=== PATIENT | female | born 1935 | race Caucasian/White ===

== ENCOUNTER → 2016-12-06 | Outpatient (CLI) | payer MEDICARE ==
[2016-12-06 08:56] LABS: Blood Urea Nitrogen 21 mg/dL (7-17); Non-African American GFR(MDRD) >60 (>60 ml/min/1.73 sqM)
--- NOTE | 2016-12-06 09:09 | US ---
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 TIA EXAM MEASUREMENTS: RIGHT: Peak Systolic Velocity (PSV) cm/sec ----- Right CCA: 77.6 ----- Right ICA: 97.7 ----- Right ECA: 66.9 ICA/CCA ratio: 1.3 RIGHT: End Diastole cm/sec ----- Right CCA: 23.5 ----- Right ICA: 29.6 ----- Right ECA: 14.2 LEFT: Peak Systolic Velocity (PSV) cm/sec ----- Left CCA: 54.0 ----- Left ICA: 100.8 ----- Left ECA: 63.6 ICA/CCA ratio: 1.9 LEFT: End Diastole cm/sec ----- Left CCA: 19.1 ----- Left ICA: 37.4 ----- Left ECA: 16.5 VERTEBRALS (direction of flow): Right Vertebral: Antegrade Left Vertebral: Antegrade TECHNOLOGIST IMPRESSION: Bilateral wall thickening. No significant stenosis or elevated velocities. Plaque seen in bilateral bulbs extending into the proximal ICA. Grayscale images show mild eccentric hyperechoic plaque centered near right carotid bulb. There is si milar slightly more prominent mild to moderate eccentric focal hyperechoic plaque at left carotid bul b. Velocity measurements and ratios remain within normal limits in the bilateral internal carotid art eries. IMPRESSION: No hemodynamically significant stenosis is seen in either internal carotid artery. Criteria for Assigning % of Stenosis / Diameter reduction (Estimation based on the indirect measurements of the internal carotid artery velocities (ICA PSV). 2. Less than 50% stenosis=ICA PSV < 125 cm/s: ratio < 2.0: ICA EDV<40 cm/s.
--- NOTE | 2016-12-06 10:43 | CT ---
EXAMINATION TYPE: CT brain w con DATE OF EXAM: 12/06/2016 9:19 AM COMPARISON: NONE HISTORY: 81-year-old female poor historian. Patient shows signs of confusion. CT DLP: 1118 mGycm Automated exposure control for dose reduction was used. CONTRAST: CT scan of the head is performed with IV Contrast, patient injected with 100 mL of Omnipaque 300. Cor onal/sagittal reconstructions performed. FINDINGS: The presence of intracranial contrast limits assessment for subtle acute intracranial hemorrhage. The re is no abnormal enhancing mass or midline shift identified. There is mild generalized supratentoria l volume loss. No hydrocephalus. The globes are intact and the visualized sinuses are clear. IMPRESSION: Mild cerebral atrophy. Otherwise, negative contrast enhanced head CT exam.
== END | disposition home or self-care (01) ==
LOC: RADUSMAIN 07:56
PROVIDERS: ATTEND Family Medicine
DX: I63.9 Cerebral infarction, unspecified (principal); R41.0 Disorientation, unspecified; R26.81 Unsteadiness on feet
CPT/HCPCS: 82565; 84520; 93880; 70460; 36415; Q9967

== ENCOUNTER 2021-05-27 11:37 | Inpatient (IN) | payer MEDICARE ==
[2021-05-27] MEDS ORDERED: SODIUM CHLORIDE 0.9% 1,000 ML IV STA (12:20)
--- NOTE | 2021-05-27 12:24 | ED ---
General Adult HPI - General Chief complaint: Recheck/Abnormal Lab/Rx Stated complaint: Fall last night, possible bladder infection Time Seen by Provider: 05/27/21 12:14 Source: patient, RN notes reviewed, old records reviewed Mode of arrival: wheelchair Limitations: no limitations - History of Present Illness Initial comments: 86-year-old female presents with family with confusion, poor appetite, and fall. Patient had fallen last night around 11 PM. She was taken to an outside hospital and there was x-rays performed which did indicate that the patient had a humerus fracture as well as possibly a pelvic fracture. She was discharged home with family. She had a recent UTI but is not currently on antibiotics. She has not been eating or drinking well. Family uncertain if there was a significant head injury. Patient is confused and unable to give detailed history. There are presenting at approximately noon the following day. - Related Data Home Medications Medication Instructions Recorded Confirmed ALPRAZolam [Xanax] 0.5 mg PO TID PRN 05/04/15 09/14/15 Aspirin 81 mg PO HS 05/04/15 09/14/15 Budesonide-Formot 160-4.5 Mcg 2 puff INHALATION BID 05/04/15 09/14/15 [Symbicort 160-4.5 Mcg Inhaler] Indomethacin [Indocin] 50 mg PO DAILY 05/04/15 09/14/15 Meclizine [Antivert] 25 mg PO DAILY PRN 05/04/15 09/14/15 Nitroglycerin Sl Tabs [Nitrostat] 0.4 mg SL DIRECTED PRN 05/04/15 09/14/15 Omeprazole [PriLOSEC] 20 mg PO BID PRN 05/04/15 09/14/15 PARoxetine [Paxil] 10 mg PO QAM 05/04/15 09/14/15 atenoloL [Tenormin] 12.5 mg PO QAM 05/04/15 09/14/15 rOPINIRole HCL [Requip] 1 mg PO HS 05/04/15 09/13/15 Cranberry Conc/C/Bacill Coag 1 each PO DAILY 08/01/15 09/14/15 [Cranberry Tablet] [place]-3 Fatty Acids/Fish Oil [Fish 1 each PO DAILY 08/01/15 09/14/15 Oil 1,000 mg Softgel] Previous Rx's Medication Instructions Recorded HYDROcodone/APAP 5-325MG [[place] 5] 1 each PO Q6HR PRN #30 tab 05/04/15 Allergies Allergy/AdvReac Type Severity Reaction Status Date / Time Sulfa (Sulfonamide AdvReac Rash/Hives Verified 05/27/21 11:56 Antibiotics) Review of Systems ROS Statement: Those systems with pertinent positive or pertinent negative responses have been documented in the HPI. ROS Other: All systems not noted in ROS Statement are negative. Past Medical History Past Medical History: Asthma, Chest Pain / Angina, COPD, Eye Disorder, GERD/Reflux, Hypertension, Pneumonia, Skin Disorder Additional Past Medical History / Comment(s): USHER SYNDROME TYPE 2-LEGALLY BLI ND-TEDDY NIZM-STW-EVOB HEARING AIDES,CONSTIPATION,UTI'S,varicose veins, psoriasis, hx kidney stones History of Any Multi-Drug Resistant Organisms: MRSA Date of last positivie culture/infection: 10/24/17 MDRO Source:: MRSA URINE Past Surgical History: Cholecystectomy Additional Past Surgical History / Comment(s): cataract teddy eyes, thyroidectomy Past Anesthesia/Blood Transfusion Reactions: Motion Sickness Additional Past Anesthesia/Blood Transfusion Reaction / Comment(s): VERTIGO Past Psychological History: Depression Smoking Status: Never smoker Past Alcohol Use History: None Reported Past Drug Use History: None Reported - Past Family History Mother Family Medical History: CVA/TIA Father Additional Family Medical History / Comment(s): BLOOD CLOT TO BRAIN- AT AGE 55 General Exam Limitations: no limitations General appearance: in no apparent distress, lethargic Head exam: Present: atraumatic, normocephalic Eye exam: Present: normal appearance, PERRL ENT exam: Present: mucous membranes dry Neck exam: Present: normal inspection. Absent: tenderness, meningismus Respiratory exam: Present: normal lung sounds bilaterally. Absent: respiratory distress, wheezes Cardiovascular Exam: Present: regular rate, normal rhythm GI/Abdominal exam: Present: soft. Absent: distended, tenderness, guarding Extremities exam: Present: other (Right upper extremity, sling applied, ecchymosis to the humerus.) Neurological exam: Present: alert, motor sensory deficit (Patient is confused, she does have diminished strength throughout but this is equal.). Absent: oriented X3 Psychiatric exam: Present: normal affect, normal mood Skin exam: Present: warm, dry, intact Course Vital Signs 05/27/21 11:56 Temperature 98 F Pulse Rate 97 Respiratory 18 Rate Blood Pressure 71/52 O2 Sat by Pulse 93 L Oximetry EKG Findings - EKG Comments: EKG Findings:: EKG: Normal sinus rhythm with baseline artifact, no ST segment elevation, rate of 95, RI interval 144, QRS duration 70, QTC 409 Medical Decision Making - Medical Decision Making 86-year-old female with confusion, poor appetite, fall which occurred yesterday. I did repeat imaging both of the chest, pelvis, and obtained a brain CT. Brain CT negative for scleral hemorrhage or mass effect. Chest x-ray shows a displaced proximal humerus fracture with no other acute findings no focal airspace disease. Pelvis x-ray is negative for displaced fracture within the pelvis or bilateral hips. Urinalysis is pending. She has a mild leukocytosis. She is significantly dehydrated and started on IV fluids. Urinalysis is pending. Troponin is elevated 0.15 she is in sinus rhythm without ST segment elevation. There's been no complaint of chest pain. She's given aspirin and this level will be trended. Case discussed with Dr. Carl who will admit. Both orthopedics and cardiology are placed on consult. - Lab Data Result diagrams: 05/27/21 13:03 05/27/21 13:03 Lab Results 05/27/21 05/27/21 05/27/21 Range/Units 13:03 13:03 13:03 WBC 13.5 H (3.8-10.6) k/uL RBC 3.55 L (3.80-5.40) m/uL Hgb 12.0 (11.4-16.0) gm/dL Hct 35.2 (34.0-46.0) % MCV 99.0 (80.0-100.0) fL MCH 33.9 (25.0-35.0) pg MCHC 34.3 (31.0-37.0) g/dL RDW 13.0 (11.5-15.5) % Plt Count 299 (150-450) k/uL MPV 8.9 Neutrophils % 89 % Lymphocytes % 6 % Monocytes % 4 % Eosinophils % 0 % Basophils % 0 % Neutrophils # 12.0 H (1.3-7.7) k/uL Lymphocytes # 0.9 L (1.0-4.8) k/uL Monocytes # 0.5 (0-1.0) k/uL Eosinophils # 0.0 (0-0.7) k/uL Basophils # 0.0 (0-0.2) k/uL PT 10.3 (9.0-12.0) sec INR 1.0 (<1.2) APTT 22.8 (22.0-30.0) sec Sodium 133 L (137-145) mmol/L Potassium 4.6 (3.5-5.1) mmol/L Chloride 104 (98-107) mmol/L Carbon Dioxide 21 L (22-30) mmol/L Anion Gap 8 mmol/L BUN 27 H (7-17) mg/dL Creatinine 0.60 (0.52-1.04) mg/dL Est GFR (CKD-EPI)AfAm >90 (>60 ml/min/1.73 sqM) Est GFR (CKD-EPI)NonAf 84 (>60 ml/min/1.73 sqM) Glucose 166 H (74-99) mg/dL Plasma Lactic Acid Joaquin (0.7-2.0) mmol/L Calcium 9.6 (8.4-10.2) mg/dL Magnesium 1.7 (1.6-2.3) mg/dL Total Bilirubin 1.0 (0.2-1.3) mg/dL AST 43 H (14-36) U/L ALT 47 H (4-34) U/L Alkaline Phosphatase 106 (38-126) U/L Creatine Kinase 120 (30-135) U/L Troponin I (0.000-0.034) ng/mL Total Protein 6.1 L (6.3-8.2) g/dL Albumin 3.5 (3.5-5.0) g/dL 05/27/21 05/27/21 Range/Units 13:03 13:03 WBC (3.8-10.6) k/uL RBC (3.80-5.40) m/uL Hgb (11.4-16.0) gm/dL Hct (34.0-46.0) % MCV (80.0-100.0) fL MCH (25.0-35.0) pg MCHC (31.0-37.0) g/dL RDW (11.5-15.5) % Plt Count (150-450) k/uL MPV Neutrophils % % Lymphocytes % % Monocytes % % Eosinophils % % Basophils % % Neutrophils # (1.3-7.7) k/uL Lymphocytes # (1.0-4.8) k/uL Monocytes # (0-1.0) k/uL Eosinophils # (0-0.7) k/uL Basophils # (0-0.2) k/uL PT (9.0-12.0) sec INR (<1.2) APTT (22.0-30.0) sec Sodium (137-145) mmol/L Potassium (3.5-5.1) mmol/L Chloride (98-107) mmol/L Carbon Dioxide (22-30) mmol/L Anion Gap mmol/L BUN (7-17) mg/dL Creatinine (0.52-1.04) mg/dL Est GFR (CKD-EPI)AfAm (>60 ml/min/1.73 sqM) Est GFR (CKD-EPI)NonAf (>60 ml/min/1.73 sqM) Glucose (74-99) mg/dL Plasma Lactic Acid Joaquin 1.8 (0.7-2.0) mmol/L Calcium (8.4-10.2) mg/dL Magnesium (1.6-2.3) mg/dL Total Bilirubin (0.2-1.3) mg/dL AST (14-36) U/L ALT (4-34) U/L Alkaline Phosphatase (38-126) U/L Creatine Kinase (30-135) U/L Troponin I 0.150 H* (0.000-0.034) ng/mL Total Protein (6.3-8.2) g/dL Albumin (3.5-5.0) g/dL Disposition Clinical Impression: Dehydration, AMS (altered mental status), Troponin level elevated, Proximal humerus fracture Disposition: ADMITTED IP TO THIS [facility] Condition: Stable Is patient prescribed a controlled substance at d/c from ED?: No Referrals: Nat Patino DO [Primary Care Provider] - 1-2 days Decision to Admit Reason: Admit from EC Decision Date: 05/27/21 Decision Time: 14:39
[2021-05-27 13:19] LABS: Basophils % (A) 0 %; Eosinophils % (A) 0 %; HCT 35.2 % (34.0-46.0); Lymphocytes # (A) 0.9 k/uL (1.0-4.8); Lymphocytes % (A) 6 %; MCH 33.9 pg (25.0-35.0); MCHC 34.3 g/dL (31.0-37.0); Mean Platelet Volume 8.9; Monocytes # (A) 0.5 k/uL (0-1.0); Monocytes % (A) 4 %; Neutrophils % (A) 89 %; Platelet Count 299 k/uL (150-450); RBC 3.55 m/uL (3.80-5.40); WBC 13.5 k/uL (3.8-10.6)
[2021-05-27 13:24] LABS: Partial Thromboplastin Time 22.8 sec (22.0-30.0); Prothrombin Time 10.3 sec (9.0-12.0)
[2021-05-27 13:30] LABS: ALT 47 U/L (4-34); AST 43 U/L (14-36); African American GFR (CKD) >90 (>60 ml/min/1.73 sqM); Albumin 3.5 g/dL (3.5-5.0); Alkaline Phosphatase 106 U/L (38-126); Anion Gap 8 mmol/L; Blood Urea Nitrogen 27 mg/dL (7-17); Calcium 9.6 mg/dL (8.4-10.2); Carbon Dioxide 21 mmol/L (22-30); Chloride 104 mmol/L (98-107); Creatine Kinase 120 U/L (30-135); Glucose 166 mg/dL (74-99); Magnesium 1.7 mg/dL (1.6-2.3); Non-African American GFR(CKD) 84 (>60 ml/min/1.73 sqM); Potassium 4.6 mmol/L (3.5-5.1); Sodium 133 mmol/L (137-145); Total Protein 6.1 g/dL (6.3-8.2)
[2021-05-27] MEDS ORDERED: cefTRIAXone IN SWFI 1,000 MG/10 ML SYRINGE IVP STA (13:45)
[2021-05-27] MEDS: SODIUM CHLORIDE 0.9% 1,000 ML IV SCH (14:10)
--- NOTE | 2021-05-27 14:18 | XR ---
EXAMINATION TYPE: XR pelvis AP view DATE OF EXAM: 05/27/2021 COMPARISON: NONE HISTORY: 86 years Female. STUDY INDICATION GIVEN: fall . TECHNIQUE: Single pelvic radiograph IMPRESSION: Generalized osteopenia limits evaluation for nondisplaced fractures. No grossly displaced fracture. The need for CT of the pelvis should be determined on clinical basis. Degenerative changes are seen in the lower lumbar spine and both sacroiliac joints. Moderate amount of stool seen in the colon.
--- NOTE | 2021-05-27 14:20 | XR ---
EXAMINATION TYPE: XR chest 1V portable DATE OF EXAM: 05/27/2021 COMPARISON: NONE HISTORY: 86 years Female. STUDY INDICATION GIVEN: weakness . TECHNIQUE: AP chest radiograph IMPRESSION: No focal airspace disease, pneumothorax or pleural effusion. Minimal bibasilar subsegmental atelectatic opacities. Normal cardiomediastinal silhouette. Displaced right proximal humerus neck fracture, unknown chronicity.
--- NOTE | 2021-05-27 14:32 | CT ---
EXAMINATION TYPE: CT brain wo con DATE OF EXAM: 05/27/2021 COMPARISON: 05/30/2018 HISTORY: Weakness, agitation CT DLP: 1111.4 mGycm Automated exposure control for dose reduction was used. There is diffuse cerebral atrophy. There is no mass effect nor midline shift. There is no sign of int racranial hemorrhage. Calvarium is intact. Skull base is intact. There is incomplete pneumatization l eft mastoid sinuses. IMPRESSION: Cerebral atrophy. No acute intracranial abnormality. There is left side mastoiditis which is new comp ared to old exam.
[2021-05-27] MEDS ORDERED: ACETAMINOPHEN TAB 325 MG TAB PO PRN (14:35)
[2021-05-27] MEDS ORDERED: NALOXONE 0.4 MG/ML 1 ML VIAL IV PRN (14:35)
[2021-05-27] MEDS: ASPIRIN 325 MG TAB PO STA ×2 (15:28→15:31)
[2021-05-27] MEDS: MORPHINE SULFATE 2 MG/ML SYRINGE IV PRN ×2 (15:36→21:18)
[2021-05-27 15:40] LABS: Appearance,Urine Clear (Clear); Bacteria,Urine Rare /hpf; Bilirubin,Urine Negative (Negative); Blood,Urine Trace (Negative); Color,Urine Yellow; Glucose,Urine (UA) Trace (Negative); Ketones,Urine Negative (Negative); Leukocyte Esterase,Urine Negative (Negative); Mucus,Urine Rare /hpf; Nitrite,Urine Negative (Negative); Protein,Urine Trace (Negative); RBC,Urine 1 /hpf (0-5); Specific Gravity,Urine 1.017 (1.001-1.035); Squamous Epithelial Cell,Urine <1 /hpf (0-4); Urobilinogen,Urine <2.0 mg/dL (<2.0); WBC,Urine 3 /hpf (0-5)
--- NOTE | 2021-05-27 16:28 | P.CNOR ---
History of Present Illness - HPI Consult date: 05/27/21 History of present illness: This patient is an 86-year-old female that presented to [facility] emergency department on 05/27/21 with her family with complaints of confusion, loss of appetite. Patient is admitted under the care of internal medicine. Orthopedics is consulted for a right proximal humerus fracture. Patient is confused on exam. She is unable to explain details of her fall. She also states she is in a bad mood and does not want to talk further. Her right upper extremity is currently in a sling. She has additional complaints. Vital signs stable. Past Medical History Past Medical History: Asthma, Chest Pain / Angina, COPD, Eye Disorder, GERD/Reflux, Hypertension, Pneumonia, Skin Disorder Additional Past Medical History / Comment(s): USHER SYNDROME TYPE 2-LEGALLY BLIND-TEDDY RBHE-UXG-AEIV HEARING AIDES,CONSTIPATION,UTI'S,varicose veins, psoria sis, hx kidney stones History of Any Multi-Drug Resistant Organisms: MRSA Year Discovered:: 10/24/17 MDRO Source:: MRSA URINE Past Surgical History: Cholecystectomy Additional Past Surgical History / Comment(s): cataract teddy eyes, thyroidectomy Past Anesthesia/Blood Transfusion Reactions: Motion Sickness Additional Past Anesthesia/Blood Transfusion Reaction / Comm: VERTIGO Past Psychological History: Depression Smoking Status: Never smoker Past Alcohol Use History: None Reported Past Drug Use History: None Reported - Past Family History Mother Family Medical History: CVA/TIA Father Additional Family Medical History / Comment(s): BLOOD CLOT TO BRAIN- AT AGE 55 Medications and Allergies Home Medications Medication Instructions Recorded Confirmed Type Budesonide-Formot 160-4.5 Mcg 2 puff INHALATION RT-BID 05/04/15 05/27/21 History [Symbicort 160-4.5 Mcg Inhaler] Nitroglycerin Sl Tabs [Nitrostat] 0.4 mg SL DIRECTED PRN 05/04/15 05/27/21 History Omeprazole [PriLOSEC] 20 mg PO BID PRN 05/04/15 05/27/21 History PARoxetine [Paxil] 10 mg PO DAILY 05/04/15 05/27/21 History atenoloL [Tenormin] 12.5 mg PO DAILY 05/04/15 05/27/21 History Cranberry Conc/C/Bacill Coag 1 tab PO DAILY 08/01/15 05/27/21 History [Cranberry Tablet] ALPRAZolam [Xanax] 0.25 mg PO QID PRN 05/27/21 05/27/21 History Albuterol Nebulized [Ventolin 2.5 mg INHALATION RT-DAILY PRN 05/27/21 05/27/21 History Nebulized] Cholecalciferol [Vitamin D3 (25 25 mcg PO DAILY 05/27/21 05/27/21 History Mcg = 1000 Iu)] Fluticasone Nasal [place] [Flonase 1 spray EA NOSTRIL DAILY PRN 05/27/21 05/27/21 History Nasal [place]] HYDROcodone/APAP 10-325MG [[place] 1 tab PO BID PRN 05/27/21 05/27/21 History 10-325] Hydrocortisone Cream 1 applic TOPICAL BID PRN 05/27/21 05/27/21 History [Hydrocortisone 2.5% Cream] Isosorbide Mononitrate ER [Imdur] 15 mg PO DAILY 05/27/21 05/27/21 History Lactulose 10 gm PO DAILY PRN 05/27/21 05/27/21 History Meloxicam 15 mg PO DAILY 05/27/21 05/27/21 History Mometasone Furoate [[place] 1 applic TOPICAL BID PRN 05/27/21 05/27/21 History Ointment] Montelukast [Singulair] 10 mg PO DAILY 05/27/21 05/27/21 History Multivitamins, Thera [Multivitamin 1 tab PO DAILY 05/27/21 05/27/21 History (formulary)] Potassium Bicarbonate/Cit AC 10 meq PO DAILY 05/27/21 05/27/21 History [K-Lyte] Pramipexole [Mirapex] 1 mg PO HS 05/27/21 05/27/21 History Allergies Allergy/AdvReac Type Severity Reaction Status Date / Time Sulfa (Sulfonamide AdvReac Rash/Hives Verified 05/27/21 15:04 Antibiotics) Physical Examination On examination, the patient is in bed in no apparent distress. She is confused. Her head appears normocephalic and atraumatic. Her breathing is nonlabored. On inspection of the left upper extremity, there are no obvious deformities at the trauma. On inspection of her bilateral lower extremities. DEFORMITIES or signs of trauma. On inspection of her right shoulder, there is diffuse ecchymosis and swelling. No open wounds. Moderate pain with palpation of the right shoulder. Right upper extremity for well-perfused. Motor and sensory is intact. Right upper extremity currently in sling. Results Chest x-ray taken on 05/27/21: Displaced right proximal humerus fracture. Pelvis x-ray taken on 05/27/21: No obvious fractures. - Labs Labs: Abnormal Lab Results - Last 24 Hours (Table) 05/27/21 05/27/21 05/27/21 Range/Units 13:03 13:03 13:03 WBC 13.5 H (3.8-10.6) k/uL RBC 3.55 L (3.80-5.40) m/uL Neutrophils # 12.0 H (1.3-7.7) k/uL Lymphocytes # 0.9 L (1.0-4.8) k/uL Sodium 133 L (137-145) mmol/L Carbon Dioxide 21 L (22-30) mmol/L BUN 27 H (7-17) mg/dL Glucose 166 H (74-99) mg/dL AST 43 H (14-36) U/L ALT 47 H (4-34) U/L Troponin I (0.000-0.034) ng/mL Total Protein 6.1 L (6.3-8.2) g/dL Urine Protein Trace H (Negative) Urine Glucose (UA) Trace H (Negative) Urine Blood Trace H (Negative) Urine Bacteria Rare H (None) /hpf Urine Mucus Rare H (None) /hpf 05/27/21 Range/Units 13:03 WBC (3.8-10.6) k/uL RBC (3.80-5.40) m/uL Neutrophils # (1.3-7.7) k/uL Lymphocytes # (1.0-4.8) k/uL Sodium (137-145) mmol/L Carbon Dioxide (22-30) mmol/L BUN (7-17) mg/dL Glucose (74-99) mg/dL AST (14-36) U/L ALT (4-34) U/L Troponin I 0.150 H* (0.000-0.034) ng/mL Total Protein (6.3-8.2) g/dL Urine Protein (Negative) Urine Glucose (UA) (Negative) Urine Blood (Negative) Urine Bacteria (None) /hpf Urine Mucus (None) /hpf H & H 05/27/21 Range/Units 13:03 Hgb 12.0 (11.4-16.0) gm/dL Hct 35.2 (34.0-46.0) % Coagulation 05/27/21 Range/Units 13:03 INR 1.0 (<1.2) Result Diagrams: 05/27/21 13:03 05/27/21 13:03 Assessment and Plan Assessment: Displaced right proximal humerus fracture. Plan: - The patient was seen and examined with Dr. Jordan. Recommend non-operative treatment for her right proximal humerus fracture. Recommend immobilization of the right upper extremity in the current sling. - Recommended dedicated right shoulder xrays today, although based on patient's comfort at this time, we will defer until we see her in the office. - Ice, rest, elevation of the right shoulder. No lifting with the right upper extremity. - Pain management as needed. - She may follow-up in the office as an outpatient. Follow-up in the office in two weeks for repeat x-rays of the right shoulder.
[2021-05-27] MEDS ORDERED: ALBUTEROL NEBULIZED 2.5 MG/3 ML INHALATION PRN (22:27)
[2021-05-27] MEDS ORDERED: PANTOPRAZOLE 40 MG TABLET PO PRN (22:27)
[2021-05-27] MEDS ORDERED: LACTULOSE 20 GM/30 ML CUP PO PRN (22:27)
[2021-05-27] MEDS: HYDROcodone/APAP 10-325MG 1 EACH TAB PO PRN (23:02)
[2021-05-27] MEDS: ALPRAZolam 0.25 MG TAB PO PRN (23:02)
[2021-05-28] MEDS ORDERED: SENNOSIDES 8.6 MG TAB PO PRN (00:14)
--- NOTE | 2021-05-28 00:24 | P.HPIM ---
History of Present Illness H&P Date: 05/27/21 Chief Complaint: Altered mental status Patient is a 86-year-old female with a known history of COPD/asthma, GERD, hypertension, legally blind bilateral eyes, psoriasis and history of renal stones and depression was brought to the hospital by his family due to confusion, poor appetite and generalized weakness. Apparently patient fell around 11 PM last night. Patient was taken to outside hospital where she had x- rays performed which indicated that the patient had a humerus fracture as well as possibly pelvic fracture. Patient was discharged home with family. Patient was also has history of recent urinary tract infection. Patient is currently confused and talking to herself. Unable to provide any history. Patient has been afebrile. Blood pressure was 71/52 on admission. X-ray of the pelvis showed generalized osteopenia limits evaluation for nondisplaced fractures. No grossly displaced fracture. The need for CT of the pelvis should be determined on a clinical basis. Moderate amount of stool seen in the colon. Laboratory data showed WBC 13.5 hemoglobin 12.0 and platelets 299 Sodium 133 potassium 4.6 chloride 104 BUN 27 creatinine 0.6 AST 43 ALT 47 alk phos 106 Troponin 0 0.150 and 0.218 Urinalysis negative for infection. Review of Systems Complete review of systems could not be obtained from the patient. Past Medical History Past Medical History: Asthma, Chest Pain / Angina, COPD, Eye Disorder, GERD/Reflux, Hypertension, Pneumonia, Skin Disorder Additional Past Medical History / Comment(s): USHER SYNDROME TYPE 2-LEGALLY BLIND-TEDDY [id number] HEARING AIDES,CONSTIPATION,UTI'S,varicose veins, psoriasis, hx kidney stones History of Any Multi-Drug Resistant Organisms: MRSA Date of last positivie culture/infection: 10/24/17 MDRO Source:: MRSA URINE Past Surgical History: Cholecystectomy Additional Past Surgical History / Comment(s): cataract teddy eyes, thyroidectomy Past Anesthesia/Blood Transfusion Reactions: Motion Sickness Additional Past Anesthesia/Blood Transfusion Reaction / Comment(s): VERTIGO Past Psychological History: Depression Smoking Status: Never smoker Past Alcohol Use History: None Reported Past Drug Use History: None Reported - Past Family History Mother Family Medical History: CVA/TIA Father Additional Family Medical History / Comment(s): BLOOD CLOT TO BRAIN- AT AGE 55 Medications and Allergies Home Medications Medication Instructions Recorded Confirmed Type Budesonide-Formot 160-4.5 Mcg 2 puff INHALATION RT-BID 05/04/15 05/27/21 History [Symbicort 160-4.5 Mcg Inhaler] Nitroglycerin Sl Tabs [Nitrostat] 0.4 mg SL DIRECTED PRN 05/04/15 05/27/21 History Omeprazole [PriLOSEC] 20 mg PO BID PRN 05/04/15 05/27/21 History PARoxetine [Paxil] 10 mg PO DAILY 05/04/15 05/27/21 History atenoloL [Tenormin] 12.5 mg PO DAILY 05/04/15 05/27/21 History Cranberry Conc/C/Bacill Coag 1 tab PO DAILY 08/01/15 05/27/21 History [Cranberry Tablet] ALPRAZolam [Xanax] 0.25 mg PO QID PRN 05/27/21 05/27/21 History Albuterol Nebulized [Ventolin 2.5 mg INHALATION RT-DAILY PRN 05/27/21 05/27/21 History Nebulized] Cholecalciferol [Vitamin D3 (25 25 mcg PO DAILY 05/27/21 05/27/21 History Mcg = 1000 Iu)] Fluticasone Nasal [place] [Flonase 1 spray EA NOSTRIL DAILY PRN 05/27/21 05/27/21 History Nasal [place]] HYDROcodone/APAP 10-325MG [[place] 1 tab PO BID PRN 05/27/21 05/27/21 History 10-325] Hydrocortisone Cream 1 applic TOPICAL BID PRN 05/27/21 05/27/21 History [Hydrocortisone 2.5% Cream] Isosorbide Mononitrate ER [Imdur] 15 mg PO DAILY 05/27/21 05/27/21 History Lactulose 10 gm PO DAILY PRN 05/27/21 05/27/21 History Meloxicam 15 mg PO DAILY 05/27/21 05/27/21 History Mometasone Furoate [[place] 1 applic TOPICAL BID PRN 05/27/21 05/27/21 History Ointment] Montelukast [Singulair] 10 mg PO DAILY 05/27/21 05/27/21 History Multivitamins, Thera [Multivitamin 1 tab PO DAILY 05/27/21 05/27/21 History (formulary)] Potassium Bicarbonate/Cit AC 10 meq PO DAILY 05/27/21 05/27/21 History [K-Lyte] Pramipexole [Mirapex] 1 mg PO HS 05/27/21 05/27/21 History Allergies Allergy/AdvReac Type Severity Reaction Status Date / Time Sulfa (Sulfonamide AdvReac Rash/Hives Verified 05/27/21 15:04 Antibiotics) Physical Exam Vitals: Vital Signs Temp Pulse Resp BP Pulse Ox 05/27/21 20:48 97.6 F 81 16 127/63 94 L 05/27/21 17:56 97.6 F 88 18 105/54 95 05/27/21 11:56 98 F 97 18 71/52 93 L Intake and Output 05/27/21 05/27/21 05/27/21 06:59 14:59 22:59 Other: Weight 54.431 kg PHYSICAL EXAMINATION: Patient is lying in the bed, confused and talking to herself... HEENT: Normocephalic. Neck is supple. Pupils reactive. Nostrils clear. Oral cavity is moist. Neck reveals no JVD, carotid bruits, or thyromegaly. CHEST EXAMINATION: Trachea is central. Symmetrical expansion. Lung quevedo clear to auscultation and percussion. CARDIAC: Normal S1, S2 with no gallops. No murmurs ABDOMEN: Soft. Bowel sounds normal. No organomegaly. No abdominal bruits. Extremities: reveal no edema. No clubbing or cyanosis Neurologically awake, alert, oriented x0 No gross focal deficits noted Skin: No rash or skin lesions. Psychiatric: could not be assesed Musculoskeletal: No joint swelling or deformity. RT arm sling and bruising over shoulder Results CBC & Chem 7: 05/28/21 08:19 05/28/21 08:19 Labs: Abnormal Lab Results - Last 24 Hours (Table) 05/27/21 05/27/21 05/27/21 Range/Units 13:03 13:03 13:03 WBC 13.5 H (3.8-10.6) k/uL RBC 3.55 L (3.80-5.40) m/uL Neutrophils # 12.0 H (1.3-7.7) k/uL Lymphocytes # 0.9 L (1.0-4.8) k/uL Sodium 133 L (137-145) mmol/L Carbon Dioxide 21 L (22-30) mmol/L BUN 27 H (7-17) mg/dL Glucose 166 H (74-99) mg/dL AST 43 H (14-36) U/L ALT 47 H (4-34) U/L Troponin I (0.000-0.034) ng/mL Total Protein 6.1 L (6.3-8.2) g/dL Urine Protein Trace H (Negative) Urine Glucose (UA) Trace H (Negative) Urine Blood Trace H (Negative) Urine Bacteria Rare H (None) /hpf Urine Mucus Rare H (None) /hpf 05/27/21 05/27/21 Range/Units 13:03 20:00 WBC (3.8-10.6) k/uL RBC (3.80-5.40) m/uL Neutrophils # (1.3-7.7) k/uL Lymphocytes # (1.0-4.8) k/uL Sodium (137-145) mmol/L Carbon Dioxide (22-30) mmol/L BUN (7-17) mg/dL Glucose (74-99) mg/dL AST (14-36) U/L ALT (4-34) U/L Troponin I 0.150 H* 0.218 H* (0.000-0.034) ng/mL Total Protein (6.3-8.2) g/dL Urine Protein (Negative) Urine Glucose (UA) (Negative) Urine Blood (Negative) Urine Bacteria (None) /hpf Urine Mucus (None) /hpf Assessment and Plan Assessment: Altered mental status due to delirium. Status post fall and displaced right proximal humerus fracture. Generalized weakness and lethargy. Dehydration volume depletion. Elevated troponin level likely demand ischemia./Type II MA. 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 DVT prophylaxis with heparin subcu. Plan: Patient will be continued on gentle IV hydration with normal saline. Was given fluid bolus in in the ER with improvement in blood pressure. Continue with breathing treatments and home medications. Follow-up renal function. Stool softeners and laxatives as needed. Orthopedic surgery was consulted. Cardiology was consulted as well for elevated troponin level. Continue to follow closely. Time with Patient: Greater than 30
[2021-05-28] MEDS: PRAMIPEXOLE 1 MG TAB PO SCH ×2 (01:29→20:03)
[2021-05-28] MEDS: SODIUM CHLORIDE 0.9% 1,000 ML IV SCH ×3 (04:15→16:40)
--- NOTE | 2021-05-28 07:00 | P.CRDCN ---
History of Present Illness Consult date: 05/28/21 History of present illness: This is an 86-year-old female patient was requested to see on the floor for further evaluation of abnormal chest. The patient is confused and she is a poor historian. The history was taken from the chart as well as from the nurse taking care of the patient. The patient does have a medical history consistent of coronary artery disease and also hypertension and dyslipidemia and also she is legally blind. She also does have depression. She was brought to the hospital by her family a cause of change in mental status and also because of generalized weakness. Apparently the patient fell outside the hospital and she developed humerus fracture. Orthopedic surgery is on the case. Beside that the patient was diagnosed with UTI. We requested to see the patient for further evaluation of abnormal cardiac enzymes. No indication that the patient was experiencing any symptoms of chest pain or chest discomfort. The EKG showed sinus rhythm with nonspecific changes. The troponin is a slightly elevated but seems to be flat across support. The hemoglobin is 12.0 and a platelet are within normal limits. Sodium and potassium are also within normal limits. Kidney function seems to be also within normal limits Past Medical History Past Medical History: Asthma, Chest Pain / Angina, COPD, Eye Disorder, GERD/Reflux, Hypertension, Pneumonia, Skin Disorder Additional Past Medical History / Comment(s): USHER SYNDROME TYPE 2-LEGALLY BLIND-TEDDY [id number] HEARING AIDES,CONSTIPATION,UTI'S,varicose veins, psoriasis, hx kidney stones History of Any Multi-Drug Resistant Organisms: MRSA Date of last positivie culture/infection: 10/24/17 MDRO Source:: MRSA URINE Past Surgical History: Cholecystectomy Additional Past Surgical History / Comment(s): cataract teddy eyes, thyroidectomy Past Anesthesia/Blood Transfusion Reactions: Motion Sickness Additional Past Anesthesia/Blood Transfusion Reaction / Comment(s): VERTIGO Past Psychological History: Depression Smoking Status: Never smoker Past Alcohol Use History: None Reported Past Drug Use History: None Reported - Past Family History Mother Family Medical History: CVA/TIA Father Additional Family Medical History / Comment(s): BLOOD CLOT TO BRAIN- AT AGE 55 Medications and Allergies Home Medications Medication Instructions Recorded Confirmed Type Budesonide-Formot 160-4.5 Mcg 2 puff INHALATION RT-BID 05/04/15 05/27/21 History [Symbicort 160-4.5 Mcg Inhaler] Nitroglycerin Sl Tabs [Nitrostat] 0.4 mg SL DIRECTED PRN 05/04/15 05/27/21 History Omeprazole [PriLOSEC] 20 mg PO BID PRN 05/04/15 05/27/21 History PARoxetine [Paxil] 10 mg PO DAILY 05/04/15 05/27/21 History atenoloL [Tenormin] 12.5 mg PO DAILY 05/04/15 05/27/21 History Cranberry Conc/C/Bacill Coag 1 tab PO DAILY 08/01/15 05/27/21 History [Cranberry Tablet] ALPRAZolam [Xanax] 0.25 mg PO QID PRN 05/27/21 05/27/21 History Albuterol Nebulized [Ventolin 2.5 mg INHALATION RT-DAILY PRN 05/27/21 05/27/21 History Nebulized] Cholecalciferol [Vitamin D3 (25 25 mcg PO DAILY 05/27/21 05/27/21 History Mcg = 1000 Iu)] Fluticasone Nasal [place] [Flonase 1 spray EA NOSTRIL DAILY PRN 05/27/21 05/27/21 History Nasal [place]] HYDROcodone/APAP 10-325MG [[place] 1 tab PO BID PRN 05/27/21 05/27/21 History 10-325] Hydrocortisone Cream 1 applic TOPICAL BID PRN 05/27/21 05/27/21 History [Hydrocortisone 2.5% Cream] Isosorbide Mononitrate ER [Imdur] 15 mg PO DAILY 05/27/21 05/27/21 History Lactulose 10 gm PO DAILY PRN 05/27/21 05/27/21 History Meloxicam 15 mg PO DAILY 05/27/21 05/27/21 History Mometasone Furoate [[place] 1 applic TOPICAL BID PRN 05/27/21 05/27/21 History Ointment] Montelukast [Singulair] 10 mg PO DAILY 05/27/21 05/27/21 History Multivitamins, Thera [Multivitamin 1 tab PO DAILY 05/27/21 05/27/21 History (formulary)] Potassium Bicarbonate/Cit AC 10 meq PO DAILY 05/27/21 05/27/21 History [K-Lyte] Pramipexole [Mirapex] 1 mg PO HS 05/27/21 05/27/21 History Allergies Allergy/AdvReac Type Severity Reaction Status Date / Time Sulfa (Sulfonamide AdvReac Rash/Hives Verified 05/27/21 15:04 Antibiotics) Physical Exam Vitals: Vital Signs Temp Pulse Pulse Resp BP BP Pulse Ox 05/28/21 04:00 98.0 F 92 18 126/82 97 05/28/21 02:00 92 18 05/28/21 00:00 98.9 F 80 17 133/66 92 L 05/27/21 22:00 99.9 F H 78 18 143/73 98 05/27/21 20:48 97.6 F 81 16 127/63 94 L 05/27/21 17:56 97.6 F 88 18 105/54 95 05/27/21 11:56 98 F 97 18 71/52 93 L Intake and Output 05/27/21 05/27/21 05/28/21 14:59 22:59 06:59 Output Total 500 Balance -500 Output: Urine 500 Other: Voiding Method Indwelling Catheter Indwelling Catheter Weight 54.431 kg 54.431 kg 52.5 kg - Constitutional General appearance: no acute distress - Respiratory Respiratory: bilateral: diminished - Cardiovascular Rhythm: regular Heart sounds: normal: S1, S2 Abnormal Heart Sounds: systolic murmur Results 05/27/21 13:03 05/27/21 13:03 Cardiac Enzymes 05/27/21 05/27/21 05/27/21 Range/Units 13:03 13:03 20:00 AST 43 H (14-36) U/L Troponin I 0.150 H* 0.218 H* (0.000-0.034) ng/mL Coagulation 05/27/21 Range/Units 13:03 PT 10.3 (9.0-12.0) sec APTT 22.8 (22.0-30.0) sec CBC 05/27/21 Range/Units 13:03 WBC 13.5 H (3.8-10.6) k/uL RBC 3.55 L (3.80-5.40) m/uL Hgb 12.0 (11.4-16.0) gm/dL Hct 35.2 (34.0-46.0) % Plt Count 299 (150-450) k/uL Comprehensive Metabolic Panel 05/27/21 Range/Units 13:03 Sodium 133 L (137-145) mmol/L Potassium 4.6 (3.5-5.1) mmol/L Chloride 104 (98-107) mmol/L Carbon Dioxide 21 L (22-30) mmol/L BUN 27 H (7-17) mg/dL Creatinine 0.60 (0.52-1.04) mg/dL Glucose 166 H (74-99) mg/dL Calcium 9.6 (8.4-10.2) mg/dL AST 43 H (14-36) U/L ALT 47 H (4-34) U/L Alkaline Phosphatase 106 (38-126) U/L Total Protein 6.1 L (6.3-8.2) g/dL Albumin 3.5 (3.5-5.0) g/dL Current Medications Generic Name Dose Route Start Last Admin Trade Name Freq PRN Reason Stop Dose Admin Acetaminophen 650 mg 05/27/21 14:35 Acetaminophen Tab 325 Mg Tab PO Q6HR PRN Mild Pain or Fever > 100.5 Hydrocodone Bitart/Acetaminophen 1 each 05/27/21 22:27 05/27/21 23:02 Hydrocodone/Apap 10-325mg 1 Each Tab PO 1 each BID PRN Administration Pain Albuterol Sulfate 2.5 mg 05/27/21 22:27 Albuterol Nebulized 2.5 Mg/3 Ml INHALATION RT-DAILY PRN Shortness Of Breath Alprazolam 0.25 mg 05/27/21 22:27 05/27/21 23:02 Alprazolam 0.25 Mg Tab PO 0.25 mg QID PRN Administration Anxiety Atenolol 12.5 mg 05/28/21 09:00 Atenolol 25 Mg Tab PO DAILY MIKHAIL Budesonide/Formoterol Fumarate 2 puff 05/28/21 08:00 Symbicort 160-4.5 Mcg Inhaler INHALATION RT-BID MIKHAIL Heparin Sodium (Porcine) 5,000 unit 05/28/21 09:00 Heparin Sodium,Porcine/Pf 5,000 Unit/0.5 Ml Syringe SQ Q12HR MIKHAIL Hydrocortisone 1 applic 05/28/21 09:00 Hydrocortisone 1% Cream 30 Gm Tube TOPICAL BID PRN Rash Sodium Chloride 1,000 mls @ 75 mls/hr 05/27/21 13:45 05/28/21 04:15 Saline 0.9% IV Not Given .[id number] [facility] Isosorbide Mononitrate 15 mg 05/28/21 09:00 Isosorbide Mononitrate Er 30 Mg Tab.Er.24h PO DAILY [facility] Lactulose 10 gm 05/27/21 22:27 Lactulose 20 Gm/30 Ml Cup PO DAILY PRN Constipation Meloxicam 15 mg 05/28/21 09:00 Meloxicam 7.5 Mg Tab PO DAILY [facility] Montelukast Sodium 10 mg 05/28/21 09:00 Montelukast 10 Mg Tab PO DAILY [facility] Morphine Sulfate 2 mg 05/27/21 14:35 05/27/21 21:18 Morphine Sulfate 2 Mg/Ml Syringe IV 2 mg Q4HR PRN Administration Severe Pain Multivitamins 1 each 05/28/21 09:00 Multivitamins, Thera 1 Each Tab PO DAILY [facility] Naloxone HCl 0.2 mg 05/27/21 14:35 Naloxone 0.4 Mg/Ml 1 Ml Vial IV Q2M PRN Opioid Reversal Pantoprazole Sodium 40 mg 05/27/21 22:27 Pantoprazole 40 Mg Tablet PO BID PRN GERD Paroxetine HCl 10 mg 05/28/21 09:00 Paroxetine 10 Mg Tab PO DAILY [facility] Potassium Bicarbonate 12.5 meq 05/28/21 09:00 Potassium Bicarb-Citric Acid 25 Meq Tablet.Eff PO DAILY [facility] Pramipexole Dihydrochloride 1 mg 05/27/21 22:30 05/28/21 01:29 Pramipexole 1 Mg Tab PO Not Given HS [facility] Senna 8.6 mg 05/28/21 00:14 Sennosides 8.6 Mg Tab PO DAILY PRN Constipation Intake and Output 05/27/21 05/27/21 05/28/21 14:59 22:59 06:59 Output Total 500 Balance -500 Output: Urine 500 Other: Voiding Method Indwelling Catheter Indwelling Catheter Weight 54.431 kg 54.431 kg 52.5 kg Patient Weight 05/28/21 06:59 Weight 52.5 kg 05/27/21 13:03 05/27/21 13:03 Assessment and Plan Assessment: Assessment #1 change in mental status #2 UTI #3 status post fall and fracture of the right humerus #4 mildly abnormal point #5 multiple comorbid conditions Plan #1 consider medical treatment for the mildly abnormal troponin in view of the absence of any symptoms of chest pain or chest discomfort #2 continue the current medical regimen which includes aspirin and beta junior and statin oral nitrate #3 follow-up with the patient
[2021-05-28 08:54] LABS: Basophils % (A) 0 %; Eosinophils % (A) 0 %; HCT 34.9 % (34.0-46.0); HGB 11.9 gm/dL (11.4-16.0); Lymphocytes # (A) 0.9 k/uL (1.0-4.8); Lymphocytes % (A) 9 %; MCH 33.5 pg (25.0-35.0); MCHC 34.1 g/dL (31.0-37.0); MCV 98.4 fL (80.0-100.0); Mean Platelet Volume 9.7; Monocytes # (A) 0.4 k/uL (0-1.0); Monocytes % (A) 4 %; Neutrophils # (A) 8.8 k/uL (1.3-7.7); Neutrophils % (A) 87 %; Platelet Count 197 k/uL (150-450); RBC 3.55 m/uL (3.80-5.40); WBC 10.2 k/uL (3.8-10.6)
[2021-05-28] MEDS ORDERED: HYDROCORTISONE 1% CREAM 30 GM TUBE TOPICAL PRN (09:00)
[2021-05-28] MEDS: POTASSIUM BICARB-CITRIC ACID 25 MEQ TABLET.EFF PO SCH (09:10)
[2021-05-28] MEDS: atenoloL 25 MG TAB PO SCH (09:11)
[2021-05-28] MEDS: HEPARIN SODIUM,PORCINE/PF 5,000 UNIT/0.5 ML SYRINGE SQ SCH ×2 (09:11→20:03)
[2021-05-28] MEDS: MONTELUKAST 10 MG TAB PO SCH (09:11)
[2021-05-28] MEDS: PARoxetine 10 MG TAB PO SCH (09:11)
[2021-05-28] MEDS: MELOXICAM 7.5 MG TAB PO SCH (09:12)
[2021-05-28] MEDS: MULTIVITAMINS, THERA 1 EACH TAB PO SCH (09:12)
[2021-05-28] MEDS: ISOSORBIDE MONONITRATE ER 30 MG TAB.ER.24H PO SCH (09:12)
[2021-05-28 09:15] LABS: African American GFR (CKD) >90 (>60 ml/min/1.73 sqM); Anion Gap 8 mmol/L; Blood Urea Nitrogen 19 mg/dL (7-17); Calcium 9.2 mg/dL (8.4-10.2); Carbon Dioxide 20 mmol/L (22-30); Chloride 106 mmol/L (98-107); Glucose 108 mg/dL (74-99); Non-African American GFR(CKD) >90 (>60 ml/min/1.73 sqM); Potassium 4.2 mmol/L (3.5-5.1); Sodium 134 mmol/L (137-145)
[2021-05-28] MEDS: SYMBICORT 160-4.5 MCG INHALER INHALATION SCH ×2 (09:17→20:54)
[2021-05-28] MEDS: HYDROcodone/APAP 10-325MG 1 EACH TAB PO PRN (11:37)
[2021-05-28] MEDS ORDERED: NICOTINE 21MG/24HR PATCH TRANSDERM STA (12:28)
[2021-05-28] MEDS: ALPRAZolam 0.25 MG TAB PO PRN (13:59)
--- NOTE | 2021-05-28 23:12 | P.PN ---
Subjective Progress Note Date: 05/28/21 Patient is a 86-year-old female with a known history of COPD/asthma, GERD, hypertension, legally blind bilateral eyes, psoriasis and history of renal stones and depression was brought to the hospital by his family due to confusion, poor appetite and generalized weakness. Apparently patient fell around 11 PM last night. Patient was taken to outside hospital where she had x- rays performed which indicated that the patient had a humerus fracture as well as possibly pelvic fracture. Patient was discharged home with family. Patient was also has history of recent urinary tract infection. Patient is currently confused and talking to herself. Unable to provide any history. Patient has been afebrile. Blood pressure was 71/52 on admission. X-ray of the pelvis showed generalized osteopenia limits evaluation for nondisplaced fractures. No grossly displaced fracture. The need for CT of the pelvis should be determined on a clinical basis. Moderate amount of stool seen in the colon. Laboratory data showed WBC 13.5 hemoglobin 12.0 and platelets 299 Sodium 133 potassium 4.6 chloride 104 BUN 27 creatinine 0.6 AST 43 ALT 47 alk phos 106 Troponin 0 0.150 and 0.218 Urinalysis negative for infection. 05/28/2021 Patient is more alert and oriented today. Able to tolerate oral diet with famil y. Pain is controlled. No complaints of chest pain or shortness of breath. Patient did not have any involvement today. No episodes of vomiting. No leg swelling. Right shoulder sling in place. Orthopedic surgery recommends to follow-up as an outpatient and repeat x-ray upon follow-up. Patient was seen by cardiology due to elevated troponin levels. Recommend conservative therapy at this time. Lab data showed sodium 134 potassium 4.2 chloride 106 bicarb is 20 BUN 19 and creatinine 0.47 WBC improved to 10.2 hemoglobin 11.9 platelets 197 Patient will be continued gentle IV hydration with normal saline. Current medications reviewed. Objective - Vital Signs Vital signs: Vital Signs Temp 98.1 F 05/28/21 16:44 Pulse 78 05/28/21 16:44 Resp 18 05/28/21 16:44 BP 122/79 05/28/21 16:44 Pulse Ox 94 L 05/28/21 16:44 Intake & Output 05/27/21 05/28/21 05/28/21 18:59 06:59 18:59 Intake Total 0 Output Total 500 500 Balance -500 -500 Weight 54.431 kg 52.5 kg Intake: Oral 0 Output: Urine 500 500 Other: Voiding Method Indwelling Catheter Indwelling Catheter # Voids 0 # Bowel Movements 0 - Exam PHYSICAL EXAMINATION: Patient is lying in the bed comfortably, no acute distress,Patient is more awake and oriented today... HEENT: Normocephalic. Neck is supple. Pupils reactive. Nostrils clear. Oral cavity is moist. Neck reveals no JVD, carotid bruits, or thyromegaly. CHEST EXAMINATION: Trachea is central. Symmetrical expansion. Lung quevedo clear to auscultation and percussion. CARDIAC: Normal S1, S2 with no gallops. No murmurs ABDOMEN: Soft. Bowel sounds normal. No organomegaly. No abdominal bruits. Extremities: reveal no edema. No clubbing or cyanosis Neurologically awake, alert, oriented x2-3 No gross focal deficits noted Skin: No rash or skin lesions. Psychiatric: Coperative. Could not be assessed completely. Musculoskeletal: No joint swelling or deformity. Right shoulder sling in place. . - Labs CBC & Chem 7: 05/28/21 08:19 05/28/21 08:19 Labs: Abnormal Lab Results - Last 24 Hours (Table) 05/27/21 05/28/21 05/28/21 Range/Units 20:00 08:19 08:19 RBC 3.55 L (3.80-5.40) m/uL Neutrophils # 8.8 H (1.3-7.7) k/uL Lymphocytes # 0.9 L (1.0-4.8) k/uL Sodium 134 L (137-145) mmol/L Carbon Dioxide 20 L (22-30) mmol/L BUN 19 H (7-17) mg/dL Creatinine 0.47 L (0.52-1.04) mg/dL Glucose 108 H (74-99) mg/dL Troponin I 0.218 H* (0.000-0.034) ng/mL 05/28/21 Range/Units 08:19 RBC (3.80-5.40) m/uL Neutrophils # (1.3-7.7) k/uL Lymphocytes # (1.0-4.8) k/uL Sodium (137-145) mmol/L Carbon Dioxide (22-30) mmol/L BUN (7-17) mg/dL Creatinine (0.52-1.04) mg/dL Glucose (74-99) mg/dL Troponin I 0.507 H* (0.000-0.034) ng/mL Microbiology - Last 24 Hours (Table) 05/27/21 13:03 Blood Culture - Preliminary Blood No Growth after 24 hours 05/27/21 13:03 Blood Culture - Preliminary Blood No Growth after 24 hours Assessment and Plan Assessment: Altered mental status due to delirium. improved now. Status post fall and displaced right proximal humerus fracture. Generalized weakness and lethargy. Dehydration volume depletion. Elevated troponin level likely demand ischemia./Type II [place]. 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 DVT prophylaxis with heparin subcu. Plan: Patient will be continued on gentle IV hydration with normal saline. Was given fluid bolus in in the ER with improvement in blood pressure. Continue with breathing treatments and home medications. Follow-up renal function. Stool softeners and laxatives as needed. Orthopedic surgery Has seen the patien t and recommends to follow-up as an outpatient. Continue with shoulder sling. Cardiology recommends to continue conservative management. PT OT will be consulted for possible transfer to rehab. Continue to follow closely. Discussed with family at bedside in detail. Time with Patient: Greater than 30
[2021-05-29] MEDS: SYMBICORT 160-4.5 MCG INHALER INHALATION SCH ×2 (07:17→19:51)
[2021-05-29] MEDS: ISOSORBIDE MONONITRATE ER 30 MG TAB.ER.24H PO SCH (09:34)
[2021-05-29] MEDS: MONTELUKAST 10 MG TAB PO SCH (09:35)
[2021-05-29] MEDS: atenoloL 25 MG TAB PO SCH (09:35)
[2021-05-29] MEDS: MELOXICAM 7.5 MG TAB PO SCH (09:35)
[2021-05-29] MEDS: MULTIVITAMINS, THERA 1 EACH TAB PO SCH (09:35)
[2021-05-29] MEDS: HEPARIN SODIUM,PORCINE/PF 5,000 UNIT/0.5 ML SYRINGE SQ SCH ×2 (09:36→22:17)
[2021-05-29] MEDS: PARoxetine 10 MG TAB PO SCH (09:36)
[2021-05-29] MEDS: POTASSIUM BICARB-CITRIC ACID 25 MEQ TABLET.EFF PO SCH (09:36)
--- NOTE | 2021-05-29 10:34 | P.PN ---
Subjective Progress Note Date: 05/29/21 This is a 86-year-old female who was admitted to the hospital following a fall, complaining of change in mental status and generalized weakness. Patient has history of coronary artery disease, hypertension, dyslipidemia and is legally blind and also diagnosed to have UTI. We're asked to see the patient because of abnormal troponins. Apparently there is no history of any chest pain. EKG did not reveal any acute changes. Patient is going to have an echocardiogram to rule out any wall motion abnormalities. We will continue current medical therapy Objective - Vital Signs Vital signs: Vital Signs Temp 98.3 F 05/29/21 10:16 Pulse 88 05/29/21 07:53 Resp 17 05/29/21 07:53 BP 145/85 05/29/21 07:53 Pulse Ox 96 05/29/21 07:53 Intake & Output 05/28/21 05/29/21 05/29/21 18:59 06:59 18:59 Intake Total 0 450 Output Total 500 450 Balance -500 0 Weight 55.5 kg Intake: Intake, IV Titration 450 Amount Sodium Chloride 0.9% 1, 450 000 ml @ 50 mls/hr IV . Q20H [facility], [facility]–1983 Rx#:[id number] Oral 0 Output: Urine 500 450 Other: Voiding Method Indwelling Catheter Indwelling Catheter Indwelling Catheter # Voids 0 # Bowel Movements 0 - Exam GENERAL EXAM: Patient is alert and doesn't appear to be in any acute distress HEENT: Normocephalic. Normal reaction of pupils, equal size, normal range of e xtraocular motion. No erythema or exudates in the throat. NECK: No masses, no nuchal rigidity. CHEST: No chest wall deformity. LUNGS: Equal air entry with no crackles or wheeze. HEART: S1 and S2 normal with no audible mumurs or gallops. Regular rhythm, femorals equal on both sides.. ABDOMEN: No hepatosplenomegaly, normal bowel sounds, no guarding or rigidity. SKIN: No rashes CENTRAL NERVOUS SYSTEM: No focal deficits. EXTREMITIES: No cyanosis, clubbing or edema. - Labs CBC & Chem 7: 05/28/21 08:19 05/28/21 08:19 Labs: Abnormal Lab Results - Last 24 Hours (Table) 05/28/21 Range/Units 08:19 Troponin I 0.507 H* (0.000-0.034) ng/mL Microbiology - Last 24 Hours (Table) 05/27/21 13:03 Blood Culture - Preliminary Blood No Growth after 24 hours 05/27/21 13:03 Blood Culture - Preliminary Blood No Growth after 24 hours Assessment and Plan (1) CAD (coronary artery disease) Current Visit: Yes Status: Acute Code(s): I25.10 - ATHSCL HEART DISEASE OF [place] CORONARY ARTERY W/O ANG PCTRS SNOMED Code(s): 16194626 (2) AMS (altered mental status) Current Visit: Yes Status: Acute Code(s): R41.82 - ALTERED MENTAL STATUS, UNSPECIFIED SNOMED Code(s): 379761050 (3) Proximal humerus fracture Current Visit: Yes Status: Acute Code(s): S42.209A - UNSP FRACTURE OF UPPER END OF UNSP HUMERUS, INIT FOR CLOS FX SNOMED Code(s): 412251917 (4) Troponin level elevated Current Visit: Yes Status: Acute Code(s): R77.8 - OTHER SPECIFIED ABNORMALITIES OF PLASMA PROTEINS SNOMED Code(s): 522823273 Plan: Continue current management. We will get an echocardiogram to rule out any wall motion abnormalities.
[2021-05-29] MEDS: SODIUM CHLORIDE 0.9% 1,000 ML IV SCH (12:10)
[2021-05-29] MEDS: PRAMIPEXOLE 1 MG TAB PO SCH (22:17)
--- NOTE | 2021-05-29 23:24 | P.PN ---
Subjective Progress Note Date: 05/29/21 Patient is a 86-year-old female with a known history of COPD/asthma, GERD, hypertension, legally blind bilateral eyes, psoriasis and history of renal stones and depression was brought to the hospital by his family due to confusion, poor appetite and generalized weakness. Apparently patient fell around 11 PM last night. Patient was taken to outside hospital where she had x- rays performed which indicated that the patient had a humerus fracture as well as possibly pelvic fracture. Patient was discharged home with family. Patient was also has history of recent urinary tract infection. Patient is currently confused and talking to herself. Unable to provide any history. Patient has been afebrile. Blood pressure was 71/52 on admission. X-ray of the pelvis showed generalized osteopenia limits evaluation for nondisplaced fractures. No grossly displaced fracture. The need for CT of the pelvis should be determined on a clinical basis. Moderate amount of stool seen in the colon. Laboratory data showed WBC 13.5 hemoglobin 12.0 and platelets 299 Sodium 133 potassium 4.6 chloride 104 BUN 27 creatinine 0.6 AST 43 ALT 47 alk phos 106 Troponin 0 0.150 and 0.218 Urinalysis negative for infection. 05/28/2021 Patient is more alert and oriented today. Able to tolerate oral diet with family. Pain is controlled. No complaints of chest pain or shortness of breath. Patient did not have any involvement today. No episodes of vomiting. No leg swelling. Right shoulder sling in place. Orthopedic surgery recommends to follow-up as an outpatient and repeat x-ray upon follow-up. Patient was seen by cardiology due to elevated troponin levels. Recommend conservative therapy at this time. Lab data showed sodium 134 potassium 4.2 chloride 106 bicarb is 20 BUN 19 and creatinine 0.47 WBC improved to 10.2 hemoglobin 11.9 platelets 197 Patient will be continued gentle IV hydration with normal saline. 05/29/2021 Patient is currently resting in the bed comfortably. Awake alert and able to communicate. No complaints of chest pain or shortness of. No complaints of shoulder pain today. Pain is controlled. Denies any complaints of nausea vomiting or abdominal pain. Tolerating oral diet. 2D echocardiogram is pending. Cardiology is on board due to elevated troponin level. Patient is being continued on gentle IV hydration. Monitor CBC and BMP tomorrow. Current medications reviewed. Objective - Vital Signs Vital signs: Vital Signs Temp 97.6 F 09/06/21 19:05 Pulse 80 05/29/21 19:05 Resp 17 05/29/21 19:05 BP 95/58 05/29/21 19:05 Pulse Ox 95 05/29/21 19:05 Intake & Output 05/29/21 05/29/21 05/30/21 06:59 18:59 06:59 Intake Total 450 600 Output Total 450 720 Balance 0 -120 Weight 55.5 kg Intake: IV 600 Sodium Chloride 0.9% 1, 600 000 ml @ 50 mls/hr IV . Q20H [facility] Rx#:[id number] Intake, IV Titration 450 Amount Sodium Chloride 0.9% 1, 450 000 ml @ 50 mls/hr IV . Q20H [facility] Rx#:[id number] Output: Urine 450 720 Uretheral (Gonzales) 720 Other: Voiding Method Indwelling Catheter Indwelling Catheter # Bowel Movements 1 - Exam PHYSICAL EXAMINATION: Patient is lying in the bed comfortably, no acute distress,Patient is more awake and oriented today... HEENT: Normocephalic. Neck is supple. Pupils reactive. Nostrils clear. Oral cavity is moist. Neck reveals no JVD, carotid bruits, or thyromegaly. CHEST EXAMINATION: Trachea is central. Symmetrical expansion. Lung quevedo clear to auscultation and percussion. CARDIAC: Normal S1, S2 with no gallops. No murmurs ABDOMEN: Soft. Bowel sounds normal. No organomegaly. No abdominal bruits. Extremities: reveal no edema. No clubbing or cyanosis Neurologically awake, alert, oriented x2-3 No gross focal deficits noted Skin: No rash or skin lesions. Psychiatric: Coperative. Could not be assessed completely. Musculoskeletal: No joint swelling or deformity. Right shoulder sling in place. . - Labs CBC & Chem 7: 05/28/21 08:19 05/28/21 08:19 Labs: Microbiology - Last 24 Hours (Table) 05/27/21 13:03 Blood Culture - Preliminary Blood No Growth after 48 hours 05/27/21 13:03 Blood Culture - Preliminary Blood No Growth after 48 hours Assessment and Plan Assessment: Altered mental status due to delirium. improved now. Status post fall and displaced right proximal humerus fracture. Generalized weakness and lethargy. Dehydration volume depletion. Elevated troponin level likely demand ischemia./Type II OK. 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 DVT prophylaxis with heparin subcu. Plan: Patient will be continued on gentle IV hydration with normal saline. Was given fluid bolus in in the ER with improvement in blood pressure. Continue with breathing treatments and home medications. Follow-up renal function. Stool softeners and laxatives as needed. Orthopedic surgery Has seen the patient and recommends to follow-up as an outpatient. Continue with shoulder sling. Cardiology recommends to continue conservative management. PT OT will be consulted for possible transfer to rehab. Continue to follow closely. Time with Patient: Greater than 30
[2021-05-30] MEDS: SODIUM CHLORIDE 0.9% 1,000 ML IV SCH (05:28)
[2021-05-30] MEDS: POTASSIUM BICARB-CITRIC ACID 25 MEQ TABLET.EFF PO SCH (07:55)
[2021-05-30] MEDS: HEPARIN SODIUM,PORCINE/PF 5,000 UNIT/0.5 ML SYRINGE SQ SCH ×2 (07:55→21:43)
[2021-05-30] MEDS: MELOXICAM 7.5 MG TAB PO SCH (07:56)
[2021-05-30] MEDS: ISOSORBIDE MONONITRATE ER 30 MG TAB.ER.24H PO SCH (07:56)
[2021-05-30] MEDS: MONTELUKAST 10 MG TAB PO SCH (07:57)
[2021-05-30] MEDS: PARoxetine 10 MG TAB PO SCH (07:58)
[2021-05-30] MEDS: atenoloL 25 MG TAB PO SCH (07:58)
[2021-05-30] MEDS: MULTIVITAMINS, THERA 1 EACH TAB PO SCH (07:59)
[2021-05-30] MEDS: SYMBICORT 160-4.5 MCG INHALER INHALATION SCH ×2 (08:55→21:24)
[2021-05-30 11:05] LABS: Basophils # (A) 0.02 X 10*3/uL (0.00-0.10); Basophils % (A) 0.3 %; Eosinophils # (A) 0.06 X 10*3/uL (0.04-0.35); HCT 25.2 % (37.2-46.3); HGB 8.2 g/dL (12.0-15.0); Lymphocytes % (A) 22.7 %; MCH 31.9 pg (27.0-32.0); MCHC 32.5 g/dL (32.0-37.0); MCV 98.1 fL (80.0-97.0); Mean Platelet Volume 12.9 fL (9.5-12.2); Monocytes # (A) 0.52 X 10*3/uL (0.20-1.00); Monocytes % (A) 9.1 %; Neutrophils % (A) 66.4 %; Platelet Count 177 X 10*3/uL (140-440); RBC 2.57 X 10*6/uL (4.10-5.20); RDW 12.6 % (11.5-14.5); WBC 5.73 X 10*3/uL (4.50-10.00)
--- NOTE | 2021-05-30 11:10 | ECHOF ---
Referral Reason:Abnormal troponin MEASUREMENTS -------- HEIGHT: 170.2 cm WEIGHT: 55.3 kg BP: RVIDd: 3.4 cm (< 3.3) IVSd: 0.7 cm (0.6 - 1.1) LVIDd: 3.6 cm (3.9 - 5.3) LVPWd: 0.9 cm (0.6 - 1.1) IVSs: 1.6 cm LVIDs: 2.3 cm LVPWs: 0.8 cm LA Diam: 3.8 cm (2.7 - 3.8) Ao Diam: 3.4 cm (2.0 - 3.7) AV Cusp: 1.1 cm (1.5 - 2.6) MV EXCURSION: 17.310 mm (> 18.000) MV EF SLOPE: 91 mm/s (70 - 150) EPSS: 0.4 cm MV E Harpreet: 0.60 m/s MV DecT: 223 ms MV A Harpreet: 0.81 m/s MV E/A Ratio: 0.74 RAP: 15.00 mmHg RVSP: 70.01 mmHg FINDINGS -------- Sinus rhythm. This was a technically good study. LV size, wall thickness and systolic function are normal, with an EF greater than 55%. The left myriam tricular size is normal. The right ventricle is moderately enlarged. The left atrial size is normal. The right atrial size is normal. Eustachian valve seen in the right atrium (normal finding). The aortic valve is trileaflet, and appears structurally normal. No aortic stenosis or regurgitation. Mild mitral regurgitation is present. Moderate tricuspid regurgitation present. There is moderate to severe pulmonary hypertension. The right ventricular systolic pressure, as measured by Doppler, is 70.01mmHg. Trace/mild (physiologic) pulmonic regurgitation. There is a trivial pericardial effusion present. CONCLUSIONS -------- 1. LV size, wall thickness and systolic function are normal, with an EF greater than 55%. 2. The left ventricular size is normal. 3. The right ventricle is moderately enlarged. 4. The left atrial size is normal. 5. The right atrial size is normal. 6. Eustachian valve seen in the right atrium (normal finding). 7. The aortic valve is trileaflet, and appears structurally normal. No aortic stenosis or regurgitati on. 8. Mild mitral regurgitation is present. 9. Moderate tricuspid regurgitation present. 10. There is moderate to severe pulmonary hypertension. 11. The right ventricular systolic pressure, as measured by Doppler, is 70.01mmHg. 12. Trace/mild (physiologic) pulmonic regurgitation. 13. There is a trivial pericardial effusion present. ELECTRIC OPERATOR: Olga Gibbons RDCS
[2021-05-30 12:41] LABS: Anion Gap 7.7 mmol/L (4.00-12.00); Calcium 8.2 mg/dL (8.7-10.3); Carbon Dioxide 21.3 mmol/L (21.6-31.8); Non-African American GFR(CKD) 88.9 (60.0-200.0); Potassium 3.8 mmol/L (3.5-5.5)
[2021-05-30 13:59] VITALS: BMI 18.4
--- NOTE | 2021-05-30 14:14 | P.PN ---
Subjective Progress Note Date: 05/30/21 HISTORY OF PRESENT ILLNESS: Patient examined this morning at the bedside. Patient denies chest pain or pressure. She denies shortness of breath. Vital signs are stable. Echocardio gram completed reveals an ejection fraction greater than 55%, mild mitral regurgitation, moderate tricuspid regurgitation, moderate to severe pulmonary hypertension. PHYSICAL EXAM: VITAL SIGNS: Reviewed. GENERAL: Well-developed in no acute distress. NECK: Supple. No JVD or thyromegaly LUNGS: Respirations even and unlabored. Lungs essentially clear to auscultation bilaterally. HEART: Regular rate and rhythm. S1 and S2 heard. EXTREMITIES: Normal range of motion. No clubbing or cyanosis. Peripheral pulses intact. No lower extremity edema ASSESSMENT: Altered mental status Status post fall Humerus fracture Abnormal troponin, not suggestive of ACS, EKG nonischemic and echo without wall motion abnormalities PLAN: Continue current management per internal medicine No further workup from a cardiac standpoint We will sign off. Please reconsult if needed. Nurse practitioner note has been reviewed by physician. Signing provider agrees with the documented findings, assessment, and plan of care. Objective - Vital Signs Vital signs: Vital Signs Temp 97.8 F 05/30/21 06:55 Pulse 75 05/30/21 07:55 Resp 17 05/30/21 07:55 BP 106/68 05/30/21 06:55 Pulse Ox 94 L 05/30/21 08:56 Intake & Output 05/29/21 05/30/21 05/30/21 18:59 06:59 18:59 Intake Total 600 Output Total 720 600 Balance -120 -600 Weight 53.5 kg 53.5 kg Intake: IV 600 Sodium Chloride 0.9% 1, 600 000 ml @ 50 mls/hr IV . Q20H [facility] Rx#:[id number] Output: Urine 720 600 Uretheral (Gonzales) 720 Other: Voiding Method Indwelling Catheter Indwelling Catheter Indwelling Catheter # Bowel Movements 1 0 - Labs CBC & Chem 7: 05/30/21 06:28 05/30/21 06:28 Labs: Abnormal Lab Results - Last 24 Hours (Table) 05/30/21 05/30/21 Range/Units 06:28 06:28 RBC 2.57 L (4.10-5.20) X 10*6/uL Hgb 8.2 L (12.0-15.0) g/dL Hct 25.2 L (37.2-46.3) % MCV 98.1 H (80.0-97.0) fL MPV 12.9 H (9.5-12.2) fL Carbon Dioxide 21.3 L (21.6-31.8) mmol/L Creatinine 0.5 L (0.6-1.5) mg/dL BUN/Creatinine Ratio 44.00 H (12.00-20.00) Ratio Calcium 8.2 L (8.7-10.3) mg/dL Microbiology - Last 24 Hours (Table) 05/27/21 13:03 Blood Culture - Preliminary Blood No Growth after 48 hours 05/27/21 13:03 Blood Culture - Preliminary Blood No Growth after 48 hours
[2021-05-30] MEDS ORDERED: QUEtiapine 25 MG TAB PO PRN (16:06)
--- NOTE | 2021-05-30 16:08 | P.PN ---
Subjective Progress Note Date: 05/30/21 Patient is a 86-year-old female with a known history of COPD/asthma, GERD, hypertension, legally blind bilateral eyes, psoriasis and history of renal stones and depression was brought to the hospital by his family due to confusion, poor appetite and generalized weakness. Apparently patient fell around 11 PM last night. Patient was taken to outside hospital where she had x- rays performed which indicated that the patient had a humerus fracture as well as possibly pelvic fracture. Patient was discharged home with family. Patient was also has history of recent urinary tract infection. Patient is currently confused and talking to herself. Unable to provide any history. Patient has been afebrile. Blood pressure was 71/52 on admission. X-ray of the pelvis showed generalized osteopenia limits evaluation for nondisplaced fractures. No grossly displaced fracture. The need for CT of the pelvis should be determined on a clinical basis. Moderate amount of stool seen in the colon. Laboratory data showed WBC 13.5 hemoglobin 12.0 and platelets 299 Sodium 133 potassium 4.6 chloride 104 BUN 27 creatinine 0.6 AST 43 ALT 47 alk phos 106 Troponin 0 0.150 and 0.218 Urinalysis negative for infection. 05/28/2021 Patient is more alert and oriented today. Able to tolerate oral diet with family. Pain is controlled. No complaints of chest pain or shortness of breath. Patient did not have any involvement today. No episodes of vomiting. No leg swelling. Right shoulder sling in place. Orthopedic surgery recommends to follow-up as an outpatient and repeat x-ray upon follow-up. Patient was seen by cardiology due to elevated troponin levels. Recommend conservative therapy at this time. Lab data showed sodium 134 potassium 4.2 chloride 106 bicarb is 20 BUN 19 and creatinine 0.47 WBC improved to 10.2 hemoglobin 11.9 platelets 197 Patient will be continued gentle IV hydration with normal saline. 05/29/2021 Patient is currently resting in the bed comfortably. Awake alert and able to communicate. No complaints of chest pain or shortness of. No complaints of shoulder pain today. Pain is controlled. Denies any complaints of nausea vomiting or abdominal pain. Tolerating oral diet. 2D echocardiogram is pending. Cardiology is on board due to elevated troponin level. Patient is being continued on gentle IV hydration. Monitor CBC and BMP tomorrow. 05/30/2021 Patient is seen and examined and follow-up this morning continues to be confused at times and states she is exhausted. Patient states she has not slept in over 3 days and just wants to sleep. Cardiology evaluated the patient and patient underwent 2-D echo showing an EF of greater than 55% with some mild mitral and moderate tricuspid regurgitation noted along with moderate to severe pulmonary hypertension noted. Patient was maintained on IV fluids and will discontinue. White blood count is normal at 5.73 with a hemoglobin of 8.2 and no active bleeding noted. Sodium is 135 with a potassium of 3.8 and current creatinine is 0.5. Cardiology signing off at this time. Patient continues to be extremely weak and maintained with the sling of the right shoulder as orthopedics has evaluated the patient recommending conservative management and no surgical intervention at this time. Family would like to discuss further about possible rehab as patient is extremely weak and needs subacute rehab for continued strength and mobility. Case management and social work following. Review of systems: Constitutional: reports extreme fatigue, no reports of fever, or chills Cardiovascular: No reports of chest pain or palpitations Respiratory: No reports of shortness of breath or cough GI: No reports of nausea, vomiting, or diarrhea : No reports of dysuria or retention Neurovascular: Reports generalized weakness and right shoulder discomfort at times All medications have been reviewed Active Medications Acetaminophen (Acetaminophen Tab 325 Mg Tab) 650 mg PO Q6HR PRN PRN Reason: Mild Pain or Fever > 100.5 Last Admin: 05/30/21 12:14 Dose: 650 mg Documented by: Hydrocodone Bitart/Acetaminophen (Hydrocodone/Apap 10-325mg 1 Each Tab) 1 each PO BID PRN PRN Reason: Pain Last Admin: 05/28/21 11:37 Dose: 1 each Documented by: Albuterol Sulfate (Albuterol Nebulized 2.5 Mg/3 Ml) 2.5 mg INHALATION RT-DAILY PRN PRN Reason: Shortness Of Breath Alprazolam (Alprazolam 0.25 Mg Tab) 0.25 mg PO QID PRN PRN Reason: Anxiety Last Admin: 05/28/21 13:59 Dose: 0.25 mg Documented by: Atenolol (Atenolol 25 Mg Tab) 12.5 mg PO DAILY [facility] Last Admin: 05/30/21 07:58 Dose: 12.5 mg Documented by: Budesonide/Formoterol Fumarate (Symbicort 160-4.5 Mcg Inhaler) 2 puff INHALATION RT-BID [facility] Last Admin: 05/30/21 08:55 Dose: 2 puff Documented by: Heparin Sodium (Porcine) (Heparin Sodium,Porcine/Pf 5,000 Unit/0.5 Ml Syringe) 5,000 unit SQ Q12HR [facility] Last Admin: 05/30/21 07:55 Dose: 5,000 unit Documented by: Hydrocortisone (Hydrocortisone 1% Cream 30 Gm Tube) 1 applic TOPICAL BID PRN PRN Reason: Rash Isosorbide Mononitrate (Isosorbide Mononitrate Er 30 Mg Tab.Er.24h) 15 mg PO DAILY [facility] Last Admin: 05/30/21 07:56 Dose: 15 mg Documented by: Lactulose (Lactulose 20 Gm/30 Ml Cup) 10 gm PO DAILY PRN PRN Reason: Constipation Meloxicam (Meloxicam 7.5 Mg Tab) 15 mg PO DAILY [facility] Last Admin: 05/30/21 07:56 Dose: 15 mg Documented by: Montelukast Sodium (Montelukast 10 Mg Tab) 10 mg PO DAILY [facility] Last Admin: 05/30/21 07:57 Dose: 10 mg Documented by: Morphine Sulfate (Morphine Sulfate 2 Mg/Ml Syringe) 2 mg IV Q4HR PRN PRN Reason: Severe Pain Last Admin: 05/27/21 21:18 Dose: 2 mg Documented by: Multivitamins (Multivitamins, Thera 1 Each Tab) 1 each PO DAILY [facility] Last Admin: 05/30/21 07:59 Dose: 1 each Documented by: Naloxone HCl (Naloxone 0.4 Mg/Ml 1 Ml Vial) 0.2 mg IV Q2M PRN PRN Reason: Opioid Reversal Pantoprazole Sodium (Pantoprazole 40 Mg Tablet) 40 mg PO BID PRN PRN Reason: GERD Paroxetine HCl (Paroxetine 10 Mg Tab) 10 mg PO DAILY [facility] Last Admin: 05/30/21 07:58 Dose: 10 mg Documented by: Potassium Bicarbonate (Potassium Bicarb-Citric Acid 25 Meq Tablet.Eff) 12.5 meq PO DAILY [facility] Last Admin: 05/30/21 07:55 Dose: 12.5 meq Documented by: Pramipexole Dihydrochloride (Pramipexole 1 Mg Tab) 1 mg PO HS [facility] Last Admin: 05/29/21 22:17 Dose: 1 mg Documented by: Livan (Sennosides 8.6 Mg Tab) 8.6 mg PO DAILY PRN PRN Reason: Constipation Objective - Vital Signs Vital signs: Vital Signs Temp 97.8 F 05/30/21 06:55 Pulse 75 05/30/21 07:55 Resp 17 05/30/21 07:55 BP 106/68 05/30/21 06:55 Pulse Ox 94 L 05/30/21 08:56 Intake & Output 05/29/21 05/30/21 05/30/21 18:59 06:59 18:59 Intake Total 600 Output Total 720 600 Balance -120 -600 Weight 53.5 kg Intake: IV 600 Sodium Chloride 0.9% 1, 600 000 ml @ 50 mls/hr IV . Q20H [facility] Rx#:[id number] Output: Urine 720 600 Uretheral (Gonzales) 720 Other: Voiding Method Indwelling Catheter Indwelling Catheter Indwelling Catheter # Bowel Movements 1 0 - Exam Patient is sitting up in the chair, Patient is awake and oriented today for continues with periods of confusion, appears tired... HEENT: Normocephalic. Neck is supple. Pupils reactive. Nostrils clear. Oral cavity is moist. Neck reveals no JVD, carotid bruits, or thyromegaly. CHEST EXAMINATION: Trachea is central. Symmetrical expansion. Lung quevedo clear to auscultation and percussion. CARDIAC: Normal S1, S2 with no gallops. No murmurs ABDOMEN: Soft. Bowel sounds normal. No organomegaly. No abdominal bruits. Extremities: reveal no edema. No clubbing or cyanosis Neurologically awake, alert, oriented x2-3 No gross focal deficits noted, diffusely weak Skin: No rash or skin lesions. Psychiatric: Cooperative. Periods of confusion at times Musculoskeletal: No joint swelling or deformity. Right shoulder sling in place. . - Labs CBC & Chem 7: 05/30/21 06:28 05/30/21 06:28 Labs: Microbiology - Last 24 Hours (Table) 05/27/21 13:03 Blood Culture - Preliminary Blood No Growth after 48 hours 05/27/21 13:03 Blood Culture - Preliminary Blood No Growth after 48 hours Assessment and Plan Assessment: Altered mental status due to delirium. improved now. Status post fall and displaced right proximal humerus fracture. Generalized weakness and lethargy. Dehydration volume depletion. Elevated troponin level likely demand ischemia./Type II [place]. 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 DVT prophylaxis with heparin subcu. Full code Plan: Patient will be continued on current medications. Have discontinued IV fluids and will continue to monitor closely and repeat labs. Patient underwent 2-D echo showing EF greater than 55% with mild mitral regurgitation and moderate tricuspid regurgitation present with moderate to severe pulmonary hypertension noted. Cardiology will continue to follow as needed. Stool softeners and laxatives as needed. Orthopedic surgery Has seen the patient and recommends to follow-up as an outpatient with no plans of surgical intervention and continue with the right shoulder sling. PT/OT therapy evaluated the patient recommending subacute rehab as patient continues to be extremely weak requiring assistance and extremely difficult to transfer. Discussed with daughter at the bedside who would like to discuss further with her family about possible rehab. They are concerned with Covid precautions as they do not want her to receive immunizations for this. Case management and social work following working on accepting facility. Will repeat a.m. labs and continue to monitor closely. Avoid narcotics and [employer] agents if possible. Patient normally takes Xanax 4 times daily and recommend holding if p atient has increased confusion or lethargy. May use Seroquel as needed at night for increased agitation. Due to multiple complex medical issues, prognosis is guarded.
[2021-05-30] MEDS: PRAMIPEXOLE 1 MG TAB PO SCH (21:43)
[2021-05-31] MEDS: ALPRAZolam 0.25 MG TAB PO PRN (01:19)
[2021-05-31 07:20] VITALS: RESP 18; TEMP 97.3
[2021-05-31] MEDS: MONTELUKAST 10 MG TAB PO SCH (07:53)
[2021-05-31] MEDS: HEPARIN SODIUM,PORCINE/PF 5,000 UNIT/0.5 ML SYRINGE SQ SCH ×2 (07:53→07:54)
[2021-05-31] MEDS: ISOSORBIDE MONONITRATE ER 30 MG TAB.ER.24H PO SCH (07:53)
[2021-05-31] MEDS: atenoloL 25 MG TAB PO SCH (07:53)
[2021-05-31] MEDS: MELOXICAM 7.5 MG TAB PO SCH (07:54)
[2021-05-31] MEDS: MULTIVITAMINS, THERA 1 EACH TAB PO SCH (07:54)
[2021-05-31] MEDS: POTASSIUM BICARB-CITRIC ACID 25 MEQ TABLET.EFF PO SCH (07:55)
[2021-05-31] MEDS: HYDROcodone/APAP 10-325MG 1 EACH TAB PO PRN (07:57)
[2021-05-31] MEDS: PARoxetine 10 MG TAB PO SCH (07:57)
[2021-05-31] MEDS: SYMBICORT 160-4.5 MCG INHALER INHALATION SCH (08:54)
[2021-05-31] MEDS ORDERED: QUEtiapine 25 MG TAB PO STA (13:37)
--- NOTE | 2021-05-31 13:57 | P.DS ---
Providers Date of admission: 05/27/21 14:35 Expected date of discharge: 05/31/21 Attending physician: Dequan Carl Consults: 05/27/21 14:35 Consult Physician Routine Consulting Provider: Lizandro Jordan Consult Reason/Comments: Proximal humerus fracture Do you want consulting provider notified?: Yes Primary care physician: Nat Patino Hospital Course: Final diagnosis Altered mental status due to delirium Status post fall and displaced right proximal humerus fracture. Generalized weakness and lethargy. Dehydration volume depletion. Elevated troponin level likely demand ischemia./Type II [place]. 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 DVT prophylaxis Full code Discharge disposition Patient is being discharged in a stable condition with guarded prognosis to [facility] for continued PT/OT therapy. Patient will follow-up with in the outpatient setting upon discharge. Patient is to follow up with ortho Dr. Jordan in 2 weeks. Continue right arm sling. Total time taken is greater than 35 minutes. Hospital course Patient is a 86-year-old female with a known history of COPD/asthma, GERD, hypertension, legally blind bilateral eyes, psoriasis and history of renal stones and depression was brought to the hospital by his family due to confusion, poor appetite and generalized weakness. Apparently patient fell around 11 PM last night. Patient was taken to outside hospital where she had x- rays performed which indicated that the patient had a humerus fracture as well as possibly pelvic fracture. Patient was discharged home with family. Patient was also has history of recent urinary tract infection. Patient is currently confused and talking to herself. Unable to provide any history. Patient has been afebrile. Blood pressure was 71/52 on admission. X-ray of the pelvis showed generalized osteopenia limits evaluation for nondisplaced fractures. No grossly displaced fracture. The need for CT of the pelvis should be determined on a clinical basis. Moderate amount of stool seen in the colon. Laboratory data showed WBC 13.5 hemoglobin 12.0 and platelets 299 Sodium 133 potassium 4.6 chloride 104 BUN 27 creatinine 0.6 AST 43 ALT 47 alk phos 106 Troponin 0 0.150 and 0.218 Urinalysis negative for infection. 05/28/2021 Patient is more alert and oriented today. Able to tolerate oral diet with family. Pain is controlled. No complaints of chest pain or shortness of breath. Patient did not have any involvement today. No episodes of vomiting. No leg swelling. Right shoulder sling in place. Orthopedic surgery recommends to follow-up as an outpatient and repeat x-ray upon follow-up. Patient was seen by cardiology due to elevated troponin levels. Recommend conservative therapy at this time. Lab data showed sodium 134 potassium 4.2 chloride 106 bicarb is 20 BUN 19 and creatinine 0.47 WBC improved to 10.2 hemoglobin 11.9 platelets 197 Patient will be continued gentle IV hydration with normal saline. 05/29/2021 Patient is currently resting in the bed comfortably. Awake alert and able to communicate. No complaints of chest pain or shortness of. No complaints of shoulder pain today. Pain is controlled. Denies any complaints of nausea vomiting or abdominal pain. Tolerating oral diet. 2D echocardiogram is pending. Cardiology is on board due to elevated troponin level. Patient is being continued on gentle IV hydration. Monitor CBC and BMP tomorrow. 05/30/2021 Patient is seen and examined and follow-up this morning continues to be confused at times and states she is exhausted. Patient states she has not slept in over 3 days and just wants to sleep. Cardiology evaluated the patient and patient underwent 2-D echo showing an EF of greater than 55% with some mild mitral and moderate tricuspid regurgitation noted along with moderate to severe pulmonary hypertension noted. Patient was maintained on IV fluids and will discontinue. White blood count is normal at 5.73 with a hemoglobin of 8.2 and no active bleeding noted. Sodium is 135 with a potassium of 3.8 and current creatinine is 0.5. Cardiology signing off at this time. Patient continues to be extremely weak and maintained with the sling of the right shoulder as orthopedics has evaluated the patient recommending conservative management and no surgical intervention at this time. Family would like to discuss further about possible rehab as patient is extremely weak and needs subacute rehab for continued strength and mobility. Case management and social work following. 05/31/2021 Patient is seen in follow-up this morning continues to have confusion with periods of alertness with staff at the bedside and patient stating she wants to be left alone. Patient will be going to [facility] today for continued PT/OT therapy and family is agreeable. Right sling in place and orthopedics recommending outpatient follow-up in 2 weeks for repeat x-ray and conservative management. Patient was also seen and evaluated by cardiology recommending conservative management with continued home medications. Patient does take [place] along with Xanax and recommend limiting the use of these if patient continues to be confused. Recommend Tylenol 650 every 6 when necessary. patient needs encouragement with meals and recommending to continue with regular diet along with ensure supplements 2-3 times daily along with Magic cups twice daily as her intake is poor. Continue with Seroquel at night as needed. Currently no reports of chest pain, shortness of breath, or palpitations. Patient is afebrile. No reports of nausea or vomiting and patient is tolerating diet. Patient will be going to [facility] today. Guarded prognosis. On exam vital signs are stable. Cardio S1, S2 are muffled. Respiratory system shows diminished breath sounds at the bases with no wheezing or rhonchi noted. Abdomen is soft and nontender. Nervous system shows diffuse weakness. Please refer to medication reconciliation sheet for a list of medications. Patient Condition at Discharge: Stable Plan - Discharge Summary New Discharge Prescriptions: New QUEtiapine [SEROquel] 25 mg PO HS PRN tab PRN Reason: Agitation Continue PARoxetine [Paxil] 10 mg PO DAILY Omeprazole [PriLOSEC] 20 mg PO BID PRN PRN Reason: GERD Nitroglycerin Sl Tabs [Nitrostat] 0.4 mg SL DIRECTED PRN PRN Reason: Chest Pain Budesonide-Formot 160-4.5 Mcg [Symbicort 160-4.5 Mcg Inhaler] 2 puff INHALATION RT-BID atenoloL [Tenormin] 12.5 mg PO DAILY Cranberry Conc/C/Bacill Coag [Cranberry Tablet] 1 tab PO DAILY Montelukast [Singulair] 10 mg PO DAILY Isosorbide Mononitrate ER [Imdur] 15 mg PO DAILY Hydrocortisone Cream [Hydrocortisone 2.5% Cream] 1 applic TOPICAL BID PRN PRN Reason: Rash Fluticasone Nasal [place] [Flonase Nasal [place]] 1 spray EA NOSTRIL DAILY PRN PRN Reason: Allergy Symptoms Multivitamins, Thera [Multivitamin (formulary)] 1 tab PO DAILY Cholecalciferol [Vitamin D3 (25 Mcg = 1000 Iu)] 25 mcg PO DAILY HYDROcodone/APAP 10-325MG [[place] 10-325] 1 tab PO BID PRN #4 tab PRN Reason: Pain ALPRAZolam [Xanax] 0.25 mg PO QID PRN #8 tab PRN Reason: Anxiety Mometasone Furoate [Elocon Ointment] 1 applic TOPICAL BID PRN PRN Reason: PSORIATIC LESIONS Meloxicam 15 mg PO DAILY Lactulose 10 gm PO DAILY PRN PRN Reason: Constipation Potassium Bicarbonate/Cit AC [K-Lyte] 10 meq PO DAILY Albuterol Nebulized [Ventolin Nebulized] 2.5 mg INHALATION RT-DAILY PRN PRN Reason: Shortness Of Breath Pramipexole [Mirapex] 1 mg PO HS Discharge Medication List Budesonide-Formot 160-4.5 Mcg [Symbicort 160-4.5 Mcg Inhaler] 2 puff INHALATION RT-BID 05/04/15 [History] Nitroglycerin Sl Tabs [Nitrostat] 0.4 mg SL DIRECTED PRN 05/04/15 [History] Omeprazole [PriLOSEC] 20 mg PO BID PRN 05/04/15 [History] PARoxetine [Paxil] 10 mg PO DAILY 05/04/15 [History] atenoloL [Tenormin] 12.5 mg PO DAILY 05/04/15 [History] Cranberry Conc/C/Bacill Coag [Cranberry Tablet] 1 tab PO DAILY 08/01/15 [History] Albuterol Nebulized [Ventolin Nebulized] 2.5 mg INHALATION RT-DAILY PRN 05/27/21 [History] Cholecalciferol [Vitamin D3 (25 Mcg = 1000 Iu)] 25 mcg PO DAILY 05/27/21 [History] Fluticasone Nasal [place] [Flonase Nasal [place]] 1 spray EA NOSTRIL DAILY PRN 05/27/21 [History] Hydrocortisone Cream [Hydrocortisone 2.5% Cream] 1 applic TOPICAL BID PRN 05/27/21 [History] Isosorbide Mononitrate ER [Imdur] 15 mg PO DAILY 05/27/21 [History] Lactulose 10 gm PO DAILY PRN 05/27/21 [History] Meloxicam 15 mg PO DAILY 05/27/21 [History] Mometasone Furoate [Elocon Ointment] 1 applic TOPICAL BID PRN 05/27/21 [History] Montelukast [Singulair] 10 mg PO DAILY 05/27/21 [History] Multivitamins, Thera [Multivitamin (formulary)] 1 tab PO DAILY 05/27/21 [History] Potassium Bicarbonate/Cit AC [K-Lyte] 10 meq PO DAILY 05/27/21 [History] Pramipexole [Mirapex] 1 mg PO HS 05/27/21 [History] ALPRAZolam [Xanax] 0.25 mg PO QID PRN #8 tab 05/31/21 [Rx] HYDROcodone/APAP 10-325MG [[place] 10-325] 1 tab PO BID PRN #4 tab 05/31/21 [Rx] QUEtiapine [SEROquel] 25 mg PO HS PRN tab 05/31/21 [Rx] Follow up Appointment(s)/Referral(s): Nat Patino DO [Primary Care Provider] - 1-2 days Lizandro Jordan MD [Medical Doctor] - 2 Weeks Activity/Diet/Wound Care/Special Instructions: Patient is going to [facility] Activity as tolerated continue current diet follow up with primary care provider on discharge follow up with ortho outpatient continue with sling of the right upper extremity continue regular diet [id number] Keep right upper extremity immobilized in sling. No lifting with right upper extremity. Discharge Disposition: HOME SELF-CARE
[2021-05-31 15:02] VITALS: BP 125/64; PULSE 61
== END 2021-05-31 16:23 | DRG 640 ==
LOC: EC 11:37 → 3SCARD 14:35 → 4SSUR 05-29 01:18
PROVIDERS: ADMIT Internal Medicine; ATTEND Internal Medicine
DX: E86.0 Dehydration (principal); I21.A1 Myocardial infarction type 2; S42.201A Unspecified fracture of upper end of right humerus, initial encounter for closed fracture; I31.3 Pericardial effusion (noninflammatory); F32.9 Major depressive disorder, single episode, unspecified; J44.9 Chronic obstructive pulmonary disease, unspecified; I10 Essential (primary) hypertension; E86.9 Volume depletion, unspecified; I08.1 Rheumatic disorders of both mitral and tricuspid valves; L40.9 Psoriasis, unspecified; I25.10 Atherosclerotic heart disease of native coronary artery without angina pectoris; E78.5 Hyperlipidemia, unspecified; I27.20 Pulmonary hypertension, unspecified; M85.88 Other specified disorders of bone density and structure, other site; E89.0 Postprocedural hypothyroidism; H54.8 Legal blindness, as defined in USA; W19.XXXA Unspecified fall, initial encounter; Z87.442 Personal history of urinary calculi; Z79.890 Hormone replacement therapy; Z79.1 Long term (current) use of non-steroidal anti-inflammatories (NSAID); Z79.51 Long term (current) use of inhaled steroids; Z79.82 Long term (current) use of aspirin; Z79.899 Other long term (current) drug therapy; Z88.2 Allergy status to sulfonamides; Z90.49 Acquired absence of other specified parts of digestive tract; Z98.42 Cataract extraction status, left eye; Z98.41 Cataract extraction status, right eye
CPT/HCPCS: 36415; 70450; 71045; 72170; 80048; 80053; 81001; 82550; 83605; 83735; 84484; 85025; 85610; 85730; 87040; 93005; 93306; 94640; 94760; 96361; 96374; 99285

== ENCOUNTER 2022-06-30 09:26 | Emergency (ER) | payer MEDICARE ==
[2022-06-30 09:31] VITALS: TEMP 98
--- NOTE | 2022-06-30 10:16 | ED ---
General Adult HPI - General Chief complaint: Extremity Injury, Upper Stated complaint: lt wrist injury Time Seen by Provider: 06/30/22 09:45 Source: patient, RN notes reviewed, old records reviewed Mode of arrival: wheelchair Limitations: no limitations - History of Present Illness Initial comments: This is a 87-year-old female presents emergency Department with a past medical history significant for Ushers disease. Patient is blind and mostly deaf. Patient got up this morning and was a little off balance and reached back and fell and hurt her left wrist and hand. Patient denies hitting her head or neck pain patient denies any other complaints. Patient states she is always a little off balance but she does not want to use a walker even though it is been suggested to her multiple times. Patient has no sites of bleeding. Patient denies any other extremity pain denies back pain chest pain or abdominal pain. - Related Data Home Medications Medication Instructions Recorded Confirmed Budesonide-Formot 160-4.5 Mcg 2 puff INHALATION RT-BID 05/04/15 05/27/21 [Symbicort 160-4.5 Mcg Inhaler] Nitroglycerin Sl Tabs [Nitrostat] 0.4 mg SL DIRECTED PRN 05/04/15 05/27/21 Omeprazole [PriLOSEC] 20 mg PO BID PRN 05/04/15 05/27/21 PARoxetine [Paxil] 10 mg PO DAILY 05/04/15 05/27/21 atenoloL [Tenormin] 12.5 mg PO DAILY 05/04/15 05/27/21 Cranberry Conc/C/Bacill Coag 1 tab PO DAILY 08/01/15 05/27/21 [Cranberry Tablet] Albuterol Nebulized [Ventolin 2.5 mg INHALATION RT-DAILY PRN 05/27/21 05/27/21 Nebulized] Cholecalciferol [Vitamin D3 (25 25 mcg PO DAILY 05/27/21 05/27/21 Mcg = 1000 Iu)] Fluticasone Nasal [place] [Flonase 1 spray EA NOSTRIL DAILY PRN 05/27/21 05/27/21 Nasal [place]] Hydrocortisone Cream 1 applic TOPICAL BID PRN 05/27/21 05/27/21 [Hydrocortisone 2.5% Cream] Isosorbide Mononitrate ER [Imdur] 15 mg PO DAILY 05/27/21 05/27/21 Lactulose 10 gm PO DAILY PRN 05/27/21 05/27/21 Meloxicam 15 mg PO DAILY 05/27/21 05/27/21 Mometasone Furoate [Elocon 1 applic TOPICAL BID PRN 05/27/21 05/27/21 Ointment 0.1%] Montelukast [Singulair] 10 mg PO DAILY 05/27/21 05/27/21 Multivitamins, Thera [Multivitamin 1 tab PO DAILY 05/27/21 05/27/21 (formulary)] Potassium Bicarbonate/Cit AC 10 meq PO DAILY 05/27/21 05/27/21 [K-Lyte] Pramipexole [Mirapex] 1 mg PO HS 05/27/21 05/27/21 Previous Rx's Medication Instructions Recorded ALPRAZolam [Xanax] 0.25 mg PO QID PRN #8 tab 05/31/21 Acetaminophen [Tylenol] 650 mg PO BID PRN #30 cap 05/31/21 HYDROcodone/APAP 10-325MG [[place] 1 tab PO BID PRN #4 tab 05/31/21 10-325] QUEtiapine [SEROquel] 25 mg PO HS PRN tab 05/31/21 Allergies Allergy/AdvReac Type Severity Reaction Status Date / Time Sulfa (Sulfonamide AdvReac Rash/Hives Verified 06/30/22 09:29 Antibiotics) Review of Systems ROS Statement: Those systems with pertinent positive or pertinent negative responses have been documented in the HPI. ROS Other: All systems not noted in ROS Statement are negative. Past Medical History Past Medical History: Asthma, Chest Pain / Angina, COPD, Eye Disorder, GERD/Reflux, Hypertension, Pneumonia, Skin Disorder Additional Past Medical History / Comment(s): USHER SYNDROME TYPE 2-LEGALLY BLIND-TEDDY [id number] HEARING AIDES,CONSTIPATION,UTI'S,varicose veins, psoriasis, hx kidney stones History of Any Multi-Drug Resistant Organisms: MRSA Date of last positivie culture/infection: 10/24/17 MDRO Source:: MRSA URINE Past Surgical History: Cholecystectomy Additional Past Surgical History / Comment(s): cataract teddy eyes, thyroidectomy Past Anesthesia/Blood Transfusion Reactions: Motion Sickness Additional Past Anesthesia/Blood Transfusion Reaction / Comment(s): VERTIGO Past Psychological History: Depression Smoking Status: Never smoker Past Alcohol Use History: None Reported Past Drug Use History: None Reported - Past Family History Mother Family Medical History: CVA/TIA Father Additional Family Medical History / Comment(s): BLOOD CLOT TO BRAIN- AT AGE 55 General Exam - General Exam Comments Initial Comments: GENERAL Patient is well-developed and well-nourished. Patient is in mild distress. EYES Patient's pupils are equal and round. Extraocular motion is intact SKIN Unremarkable NEURO The patient is alert and oriented 3 PYSCH Patient has normal interpersonal interactions. MUSCULOSKELETAL Patient's left wrist is tender slightly deformed and swollen. Limitations: no limitations Course Vital Signs 06/30/22 09:29 Temperature 98 F Pulse Rate 60 Respiratory 16 Rate Blood Pressure 140/79 O2 Sat by Pulse 97 Oximetry Procedures - Orthopedic Joint Reduction Joint #1 Consent Obtained: verbal consent Side: left Joint Reduction Location: wrist Analgesia: hematoma block Local Anesthetic Used: Lidocaine 1% Technique Used: traction/counter-traction Post-Reduction Neuro Exam: intact Post-Reduction Vascular Exam: intact Post Reduction X-Ray Obtained: Yes Post Reduction X-Ray Results: reduced Splint Applied: Yes Patient Tolerated Procedure: well - Orthopedic Splinting/Casting Injury #1 Side: left Upper Extremity Injury Location: short arm, wrist Upper Extremity Immobilizer: volar splint Medical Decision Making - Medical Decision Making Wrist x-ray shows a fracture of the distal radius and ulna with posterior angu lation. Disposition Clinical Impression: Fracture of radius and ulna Disposition: HOME SELF-CARE Instructions (If sedation given, give patient instructions): Wrist Fracture in Adults (ED) Is patient prescribed a controlled substance at d/c from ED?: No Referrals: Nat Patino DO [Primary Care Provider] - 1-2 days Time of Disposition: 12:30
--- NOTE | 2022-06-30 10:50 | XR ---
Right hand. HISTORY: Pain following trauma. COMPARISON: None. TECHNIQUE: 3 views the right hand were obtained. There is diffuse osteopenia. There are no fractures of the phalanges, metacarpals or carpal bones. There are no intra-articular ab normalities. IMPRESSION: No evidence of right hand fracture. There is diffuse osteopenia.
--- NOTE | 2022-06-30 10:53 | XR ---
Left wrist. HISTORY: Pain following trauma. COMPARISON: None. TECHNIQUE: 3 views left wrist are obtained. FINDINGS: There is diffuse osteopenia. There is a Colles' fracture of the left wrist with apex volar angulation. The carpal bones and articu lations are normal. No radiopaque foreign body. IMPRESSION: Displaced fracture of the distal left radius and ulna with apex volar angulation.
[2022-06-30] MEDS ORDERED: IBUPROFEN 600 MG TAB PO STA (11:04)
[2022-06-30] MEDS ORDERED: HYDROmorphone 0.5 MG/0.5 ML SYRINGE IM STA (11:04)
--- NOTE | 2022-06-30 12:49 | XR ---
Left wrist. HISTORY: Post reduction for left wrist fracture. COMPARISON: 06/30/2022 3 reduction images. TECHNIQUE: 2 views left wrist are obtained. FINDINGS: Reduction of the Colles' fracture involving the distal left ulna and radius demonstrate near anatomic alignment.. The fracture of the distal left radius does involve the articular surface. The carpal bones and articulations are normal. IMPRESSION: Near-anatomic alignment following reduction of the patient's left wrist Colles' fracture
[2022-06-30 13:44] VITALS: BP 135/68; PULSE 62; RESP 15
== END 2022-06-30 13:44 | disposition home or self-care (01) ==
LOC: EC 09:26
DX: S69.92XA Unspecified injury of left wrist, hand and finger(s), initial encounter (principal); S52.502A Unspecified fracture of the lower end of left radius, initial encounter for closed fracture; S52.602A Unspecified fracture of lower end of left ulna, initial encounter for closed fracture; F32.A Depression, unspecified; J18.9 Pneumonia, unspecified organism; J44.9 Chronic obstructive pulmonary disease, unspecified; K21.9 Gastro-esophageal reflux disease without esophagitis; I10 Essential (primary) hypertension; Z79.899 Other long term (current) drug therapy; Z88.2 Allergy status to sulfonamides; W18.30XA Fall on same level, unspecified, initial encounter
CPT/HCPCS: 99283 ×2; 96372 ×2; 29125 ×2; 73100; 73110; 73130; J1170; 25605; 99284

== ENCOUNTER → 2023-01-09 | Outpatient (CLI) | payer MEDICARE ==
[2023-01-09 13:55] VITALS: BP 161/79; PULSE 60; RESP 18; TEMP 97.9
--- NOTE | 2023-01-09 14:59 | P.PAINPG ---
PQRS Measure Charge Sheet Comment: HISTORY OF PRESENT ILLNESS: 87 yr old female w daughter/ granddaughter at side as a referral from Dr Patino presents today w severe and chronic LBP secondary to DDD, spondylosis and facet arthropathy without myelopathy for evaluation. Pt states pain level is provoked at 10 /10 in intensity, constant, localized in the lower lumbar spine, sharp in character w shooting pain towards the LLE. Pain is provoked by weight bearing activities. Pain is alleviated by PT guided home stretching regimen, heat, ice, medications ([place], Mobic, Ibu), topicals, use of a wheelchair for ambulatory assistance, repositioning and rest. PMH: OA, Asthma, Angina, COPD, GERD, HTN, Hard of Hearing, Usher's Syndrome, Legally Blind, MDD PSH: Hx Nephrolithiasis, Cholecystectomy, BL Cataract Resection, Thyroidectomy SH: Never smoker, No ETOH abuse, No illicit drug use FH: Mo- CVA. Fa- Brain Aneurysm/ at age 57. All: Sulfa Meds: See lsit REVIEW OF ORGAN SYSTEMS: CONSTITUTIONAL: No fevers or chills. No recent weight loss. NEUROLOGICAL: + numbness and tingling along the distal extremities. No seizure disorders or headaches. MUSCULOSKELETAL: + pain PSYCHIATRIC: Denies current depression or suicidal th oughts. Physical Examinations : Constitutional : Cooperative , not in acute distress . Neurologic : Cranial nerve II to XII intact. No focal neurological deficits. Psychiatric : alert & oriented x 3. Matching mood & appropriate affect. Judgment & insight intact. Musculoskeletal : Cervical Spine Motor strength in the deltoid and biceps: Normal right side. Normal Left side Motor strength biceps and the wrist extensors: Normal right side . Normal left side Motor strength in the triceps muscle: Normal right side. Normal left side Deep tendon reflexes: Normal at the biceps. Normal at Brachioradialis. Normal at triceps Vertebral body tenderness to deep palpation over Cervical facet loading test: positive bilaterally Spurling test: positive bilaterally Neck distraction test: positive bilaterally Christine sign: positive bilaterally Lumbar spine Motor strength lower extremities ,thigh and legs 5/5 Right side , 5/5 Left side Deep tendon reflexes : Normal Knee Jerk. Normal Ankle Jerk Vertebral body tenderness over L4, L5 Lumbar facet Loading Test: positive Right / positive Left Range of motion of the lumbar spine Flexion 30 degrees, extension 10 degrees Straight Leg Raise test: Left/ Right positive at degree Jade test: positive right / positive left. Severe tenderness over the Sacroiliac joint on the Right / Left sides Gaenslen test: positive bilaterally Seated flexion test: positive bilaterally. Sacral spine : Severe tenderness over the Sacroiliac joint: right side / left side Range of motion: Flexion of the lumbar spine <60 degrees Range of motion: Extension of the lumbar spine <20 degrees Gaenslen's Test positive Brant's Test positive Jade test: positive right side / left side Thigh Thrust Test Sacral Thrust Test Imaging: MRI without contrast of the lumbar spine from 01/19/19 reviewed Assessment/ Plan : Lumbar spondylosis Recommendation of x ray of the lumbar spine re: M51.36. May need additional testing if indicated. May return to clinic within 2-4 wks for a re evaluation. All questions answered. I have spent greater than 30 minutes on patient care today. Dr Conrad was available by phone for the evaluation of this patient. The time was used to review the medical records including relevant urine studies and Prescription history (MAPs), review of the available imaging, evaluation and examination of the patient, coordination of care with the medical staff and if applicable referring physicians, as well as creation of the medical record PQRS Narrative: Smoking Status Current every day smoker Home Medications: Ambulatory Orders Budesonide-Formot 160-4.5 Mcg [Symbicort 160-4.5 Mcg Inhaler] 2 puff INHALATION RT-BID 05/04/15 Nitroglycerin Sl Tabs [Nitrostat] 0.4 mg SL Q5M PRN 05/04/15 Omeprazole [PriLOSEC] 20 mg PO DAILY PRN 05/04/15 PARoxetine [Paxil] 10 mg PO DAILY 05/04/15 atenoloL [Tenormin] 12.5 mg PO DAILY 05/04/15 Albuterol Nebulized [Ventolin Nebulized] 2.5 mg INHALATION RT-DAILY PRN 05/27/21 Fluticasone Nasal [place] [Flonase Nasal [place]] 1 spray EA NOSTRIL DAILY PRN 05/27/21 Hydrocortisone Cream [Hydrocortisone 2.5% Cream] 1 applic TOPICAL BID 05/27/21 Isosorbide Mononitrate ER [Imdur] 15 mg PO DAILY 05/27/21 Meloxicam 15 mg PO DAILY 05/27/21 Mometasone Furoate [Elocon Ointment 0.1%] 1 applic TOPICAL BID 05/27/21 Montelukast [Singulair] 10 mg PO DAILY 05/27/21 Pramipexole [Mirapex] 1 mg PO HS 05/27/21 ALPRAZolam [Xanax] 0.25 mg PO QID PRN #8 tab 05/31/21 Aricept (Unknown) 1 dose PO DIRECTED 11/05/22 Cephalexin [Keflex] 500 mg PO Q12HR 7 Days #14 cap 11/05/22 Rivastigmine Tartrate [Exelon] 3 mg PO BID 11/05/22 Controlled Substance Measures - Controlled Substance Measures Is patient prescribed a controlled substance at discharge?: No
== END ==
LOC: PNWHC3 12:58
PROVIDERS: ATTEND Specialist
DX: M47.816 Spondylosis without myelopathy or radiculopathy, lumbar region (principal); M19.90 Unspecified osteoarthritis, unspecified site; J44.9 Chronic obstructive pulmonary disease, unspecified; K21.9 Gastro-esophageal reflux disease without esophagitis; I10 Essential (primary) hypertension; F32.9 Major depressive disorder, single episode, unspecified; F17.200 Nicotine dependence, unspecified, uncomplicated; Z88.2 Allergy status to sulfonamides
CPT/HCPCS: 99211

== ENCOUNTER → 2023-01-09 | Outpatient (CLI) | payer MEDICARE ==
--- NOTE | 2023-01-09 14:31 | XR ---
EXAMINATION TYPE: XR lumbar spine 2 or 3V DATE OF EXAM: 01/09/2023 COMPARISON: None HISTORY: Pain TECHNIQUE: 3 view lumbar spine FINDINGS: There are 5 lumbar-type vertebral bodies. The pedicles appear intact. There is a superior e ndplate compression deformity of L3. Spondylosis is present through L3. There is loss of disc height at L4-5. Grade 1-2 spondylolisthesis of L4 internal finding is present. Posterior disc space narrowin g is present at L3-4. There is disc space narrowing present at L2-3 and L1-L2. IMPRESSION: 1. Grade 1-2 spondylolisthesis of L4 anteriorly on L5 with loss of disc height. 2. Compression deformity L3 of indeterminate age. The posterior wall displacement is evident. 3. Multilevel degenerative disc changes
== END | disposition home or self-care (01) ==
LOC: RADXRMAIN 14:00
PROVIDERS: ATTEND Specialist
DX: M48.56XA Collapsed vertebra, not elsewhere classified, lumbar region, initial encounter for fracture (principal); M51.36 Other intervertebral disc degeneration, lumbar region; M43.16 Spondylolisthesis, lumbar region
CPT/HCPCS: 72100

== ENCOUNTER → 2023-01-30 | Outpatient (CLI) | payer MEDICARE ==
[2023-01-30 14:47] VITALS: BP 138/85; PULSE 73; RESP 18; TEMP 97.6
--- NOTE | 2023-01-30 15:24 | P.PAINPG ---
PQRS Measure Charge Sheet Comment: A 87 yr old wheelchair bound female w daughter, granddaughter at side with a history of severe and chronic LBP s/p fal from horse secondary to lumbar DDD and spondylosis with facet arthropathy without myelopathy presents today for MRI results. Pain level is provoked at 10 /10 in intensity, constant, localized in the lumbar spine, achy/ sore in character w shooting towards the LLE. Pain is provoked by standing, bending, lifting or any movement. Pain is alleviated with PT x 8 wks in 2021, heat, ice, medications, topical, repositioning and rest. Chiropractic treatments are contraindicated due to a "compressed spine." Interventional pain procedures completed include DENIES Patient is currently on [place], [place] Patient denies any side effects of the medication(s), denies excessive drowsiness or sleepiness, denies suicidal ideation and reports that the current pain medication is helping to control the pain and improve activities of daily living. Patient denies any motor or sensory deficits. Patient denies any fever or night sweats, denies any change in the bowel movements or urination. Physical Examination: -Constitutional: Cooperative. Not in acute distress . - Neurologic: Cranial nerve II to XII intact. No focal neurological deficits. - Psychatric: Alert & oriented x 3. Matching mood & appropriate affect. Judgment and insight intact. - Musculoskeletal: Cervical spine: Muscle bulk/ tone/ strength in the bilateral upper extremities normal Vertebral body tenderness to palpation over [place] test positive Distraction test positive Facet loading test positive TTP Thoracic spine Muscle bulk / tone/ strength in the bilateral paraspinal muscles normal Vertebral body tender to palpation over Facet loading test positive TTP Lumbar spine: Motor bulk/ tone/ strength lower extremities , thigh and legs : 5/5 Deep tendon reflexes : Normal Knee Jerk. Normal Ankle Jerk . Vertebral body tenderness to palpation over L4 Lumbar Facet Loading Test positive Straight Leg Raise: positive at 30 degrees right side/ left side Gaenslen's Test positive Sacral spine : Severe tenderness over the Sacroiliac joint: right side / left side Range of motion: Flexion of the lumbar spine <60 degrees Range of motion: Extension of the lumbar spine <20 degrees Gaenslen's Test positive right side / left side Jade test: positive right side / left side Thigh Thrust Test positive right side / left side Sacral Thrust Test positive right side / left side Imaging: MRI non contrast of the lumbar spine from 01/25/23 reviewed. Assessment and plan: Chronic LBP secondary to lumbar DDD, spondylosis with facet arthropathy without myelopathy Recommendation of KING L4-L5. May need additional injections for optimal pain relief. Risks, benefits of procedure discussed and pt verbalized understanding. Admits to anticoagulant use or medical history of diabetes. Protocol for discontinuation/ continuation of medications dequan procedure discussed. All questions answered. I have spent less than 30 minutes on patient care today. Dr Conrad was available by phone for the evaluation of this patient. The time was used to review the medical records including relevant urine studies and Prescription history (MAPs), review of the available imaging, evaluation and examination of the patient, coordination of care with the medical staff and if applicable referring physicians, as well as creation of the medical record PQRS Narrative: Smoking Status Current every day smoker Hx Alcohol Use (MH) No Home Medications: Ambulatory Orders Budesonide-Formot 160-4.5 Mcg [Symbicort 160-4.5 Mcg Inhaler] 2 puff INHALATION RT-BID 05/04/15 Nitroglycerin Sl Tabs [Nitrostat] 0.4 mg SL Q5M PRN 05/04/15 Omeprazole [PriLOSEC] 20 mg PO DAILY PRN 05/04/15 PARoxetine [Paxil] 10 mg PO DAILY 05/04/15 atenoloL [Tenormin] 12.5 mg PO DAILY 05/04/15 Albuterol Nebulized [Ventolin Nebulized] 2.5 mg INHALATION RT-DAILY PRN 05/27/21 Fluticasone Nasal [place] [Flonase Nasal [place]] 1 spray EA NOSTRIL DAILY PRN 05/27/21 Hydrocortisone Cream [Hydrocortisone 2.5% Cream] 1 applic TOPICAL BID 05/27/21 Isosorbide Mononitrate ER [Imdur] 15 mg PO DAILY 05/27/21 Meloxicam 15 mg PO DAILY 05/27/21 Mometasone Furoate [Elocon Ointment 0.1%] 1 applic TOPICAL BID 05/27/21 Montelukast [Singulair] 10 mg PO DAILY 05/27/21 Pramipexole [Mirapex] 1 mg PO HS 05/27/21 ALPRAZolam [Xanax] 0.25 mg PO QID PRN #8 tab 05/31/21 Aricept (Unknown) 1 dose PO DIRECTED 11/05/22 Cephalexin [Keflex] 500 mg PO Q12HR 7 Days #14 cap 11/05/22 Rivastigmine Tartrate [Exelon] 3 mg PO BID 11/05/22 Controlled Substance Measures - Controlled Substance Measures Is patient prescribed a controlled substance at discharge?: No
== END ==
LOC: PNWHC3 12:47
PROVIDERS: ATTEND Specialist
DX: M51.36 Other intervertebral disc degeneration, lumbar region (principal); M47.816 Spondylosis without myelopathy or radiculopathy, lumbar region; F17.210 Nicotine dependence, cigarettes, uncomplicated; Z88.2 Allergy status to sulfonamides
CPT/HCPCS: 99211

== ENCOUNTER → 2023-02-21 | Day surgery (SDC) | payer MEDICARE ==
[~2023-02-21] MED LIST: IOPAMIDOL M200 10 ML VIAL ONE; IV FLUID CONTINUATION 800 ML IV ONE; LACTATED RINGERS 1,000 ML IV SCH; LIDOCAINE 1% (10MG/ML) FOR IV START INTRADERMA PRN; MIDAZOLAM 2 MG/2 ML VIAL ONE; methylPREDNISolone ACETATE 40 MG/ML 1 ML VIAL ONE
[2023-02-21 07:54] VITALS: TEMP 97
--- NOTE | 2023-02-21 08:41 | P.PCN ---
Date of Procedure: 02/21/23 Procedure(s) Performed: PREOPERATIVE DIAGNOSIS: 1- Lumbar Degenerative Disc Diseases 2-Lumbar spondylosis with Facet arthropathy without myelopathy. POSTOPERATIVE DIAGNOSIS: 1-lumbar degenerative disc disease. 2-lumbar spondylosis with facet arthropathy without myelopathy. PROCEDURE 1. Lumbar epidural steroid injection under fluoroscopic guidance at the L4-5 level. (Fluoroscopy imaging was available in radiology department) 2. Lumbar epidurogram. ANESTHESIA: moderate sedation with intravenous Versed 1 mg , Sedation start time : 831 Sedation end time : 837 EBL: Minimal PROCEDURE INDICATION: The patient with low back pain and radiculitis symptoms unresponsive to conservative treatment. Fluoroscopy was used to optimize visualization of the needle placement and to maximize safety. PROCEDURE DESCRIPTION / TECHNIQUE: The patient was seen and identified in the preoperative area. Risks, benefits, complications including but not limited to infections ,bleeding ,allergic reaction to the medications ,nerve damage and not complete pain releife , and alternatives were discussed with the patient. The patient agreed to proceed with the procedure and signed the consent. IV was started, and vital signs were stable. Patient was taken to the OR and time out was completed. The patient was placed in the prone position on procedure table and a pillow was placed under the abdomen to reduce lumbar lordosis. The lumbosacral area was prepped and draped in the usual sterile fashion.ere closely monitored during the procedure. Conscious sedation was used during the procedure to decrease patients anxiety. Vital signs was monitered during the entire procedure. Using anterior-posterior fluoroscopy, the L4-5 interlaminar space was identified and the skin over this site was marked and then infiltrated with 1% lidocaine subcutaneously. Subsequently, a 20-gauge Tuohy epidural needle was inserted and advanced toward the epidural space using the ``Loss of resistance technique and guided by AP and lateral fluoroscopy. The correct needle position in the epidural space was verified with the injection of 2 mL of the water soluble contrast dye Isovue 200 contrast and observing an excellent epidurogram with the epidural spread of the dye, after negative aspiration for blood and CSF and in the absence of paresthesias. Again after negative aspiration, a 6 ml mixture containing 40 mg of Depo-medrol ( Preservetive Free ), and 2 ml of preservative free Normal Saline, and 2 ml of preservative free lidocaine 1% solution was injected and a washout of epidurogram was seen. Needle was withdrawn intact, skin was cleansed, and bandages were applied. COMPLICATIONS: None DISPOSITION / PLANS: The patient was placed in a supine position and transferred to the recovery area in a stable condition for observation. There was no evidence of lower extremity motor or sensory deficit after the procedure. Patient was discharged from the recovery room after meeting discharge criteria. Home discharge instructions were given to the patient by the staff. The patient was reexamined prior to discharge. The patient will schedule a follow up in the clinic in 2-4 weeks.
--- NOTE | 2023-02-21 08:57 | FL ---
Intraoperative/procedural fluoroscopic services were provided. Total fluoroscopy time is 1.5 seconds with a total of 1 submitted images to PACS. Please see the operative/procedural note for further deta ils. DAP: [id number] mGym2
[2023-02-21 09:01] VITALS: BP 116/65; PULSE 58; RESP 18
== END ==
LOC: ORPAIN 07:06
PROVIDERS: ATTEND Specialist
DX: M51.16 Intervertebral disc disorders with radiculopathy, lumbar region (principal); M47.26 Other spondylosis with radiculopathy, lumbar region; Z88.2 Allergy status to sulfonamides; Z79.82 Long term (current) use of aspirin
CPT/HCPCS: 62323; J2250; J1030; Q9966

== ENCOUNTER → 2023-03-18 | Outpatient (CLI) | payer MEDICARE ==
[2023-03-18 13:32] VITALS: BP 127/60; PULSE 87; RESP 18; TEMP 97.6
--- NOTE | 2023-03-18 14:33 | P.PAINPG ---
PQRS Measure Charge Sheet Comment: A 87 yr old female w daughter and granddaughter at side with a history of severe and chronic LBP x 3 yrs secondary to lumbar DDD and spondylosis with facet arthropathy without myelopathy presents today for evaluation s/p KING L4- L5. Pt states she experienced 80 % pain relief x 3 days s/p procedure. Pain lev el is provoked at 10 /10 in intensity, constant, localized in the lumbar spine, sore in character w shooting towards the BLEs. Pain is provoked by bending. Pain is alleviated with PT x 6 wks approx 1 1/2 yrs ago, medications, inactivity, reclining, heat and rest. Interventional pain procedures completed include EIS L4-L5 Patient is currently on [place], Mobic from Dr Patino Patient denies any side effects of the medication(s), denies excessive drowsiness or sleepiness, denies suicidal ideation and reports that the current pain medication is helping to control the pain and improve activities of daily living. Patient denies any motor or sensory deficits. Patient denies any fever or night sweats, denies any change in the bowel movements or urination. Physical Examination: -Constitutional: Cooperative. Not in acute distress . - Neurologic: Cranial nerve II to XII intact. No focal neurological deficits. - Psychatric: Alert & oriented x 3. Matching mood & appropriate affect. Judgment and insight intact. - Musculoskeletal: Cervical spine: Muscle bulk/ tone/ strength in the bilateral upper extremities normal Vertebral body tenderness to palpation over Spurling test positive Distraction test positive Facet loading test positive TTP Thoracic spine Muscle bulk / tone/ strength in the bilateral paraspinal muscles normal Vertebral body tender to palpation over Facet loading test positive TTP Lumbar spine: Motor bulk/ tone/ strength lower extremities , thigh and legs : 5/5 Deep tendon reflexes : Normal Knee Jerk. Normal Ankle Jerk . Vertebral body tenderness to palpation over [place] Test positive Lumbar Facet Loading Test positive Straight Leg Raise: positive at 30 degrees right side/ left side Gaenslen's Test positive Sacral spine : Severe tenderness over the Sacroiliac joint: right side / left side Range of motion: Flexion of the lumbar spine <60 degrees Range of motion: Extension of the lumbar spine <20 degrees Gaenslen's Test positive right side / left side Jade test: positive right side / left side Thigh Thrust Test positive right side / left side Sacral Thrust Test positive right side / left side Assessment and plan: Chronic LBP secondary to lumbar stenosis Recommendation of medication mgmt. On [place] from her referring physician. Will add Diclofenac gel. Does not want to try Lidoderm at this time. Does not appear that pt would pass a behavior eval for a SCS Trial. All questions answere d. I have spent less than 30 minutes on patient care today. Dr Conrad was available by phone for the evaluation of this patient. The time was used to review the medical records including relevant urine studies and Prescription history (MAPs), review of the available imaging, evaluation and examination of the patient, coordination of care with the medical staff and if applicable referring physicians, as well as creation of the medical record - Pain Location Bilateral Leg Non-Pharmacological Interventions: Heat, Inactivity, Physical Therapy Pharmacological Interventions: Epidural, Scheduled Medication PQRS Narrative: Smoking Status Current every day smoker Hx Alcohol Use (MH) No Home Medications: Ambulatory Orders Budesonide-Formot 160-4.5 Mcg [Symbicort 160-4.5 Mcg Inhaler] 2 puff INHALATION DAILY 05/04/15 Nitroglycerin Sl Tabs [Nitrostat] 0.4 mg SL Q5M PRN 05/04/15 Omeprazole [PriLOSEC] 20 mg PO DAILY PRN 05/04/15 PARoxetine [Paxil] 10 mg PO DAILY 05/04/15 atenoloL [Tenormin] 12.5 mg PO DAILY 05/04/15 Albuterol Nebulized [Ventolin Nebulized] 2.5 mg INHALATION RT-DAILY PRN 05/27/21 Fluticasone Nasal [place] [Flonase Nasal [place]] 1 spray EA NOSTRIL DAILY PRN 05/27/21 Hydrocortisone Cream [Hydrocortisone 2.5% Cream] 1 applic TOPICAL BID 05/27/21 Isosorbide Mononitrate ER [Imdur] 15 mg PO HS 05/27/21 Meloxicam 15 mg PO DAILY 05/27/21 Mometasone Furoate [Elocon Ointment 0.1%] 1 applic TOPICAL BID PRN 05/27/21 Montelukast [Singulair] 10 mg PO DAILY PRN 05/27/21 Pramipexole [Mirapex] 1 mg PO HS 05/27/21 ALPRAZolam [Xanax] 0.25 mg PO QID PRN #8 tab 05/31/21 Rivastigmine Tartrate [Exelon] 3 mg PO BID 11/05/22 Aspirin 81 mg PO DAILY 02/20/23 HYDROcodone/APAP 10-325MG [[place] 10-325] 1 tab PO DIRECTED PRN 02/20/23 nitrofurantoin macrocrystaL [Nitrofurantoin] 100 mg PO DAILY 02/20/23 Diclofenac Sodium Gel [Voltaren Gel] 100 gm TOPICAL BID 30 Days #100 gm 03/18/23 Controlled Substance Measures - Controlled Substance Measures Is patient prescribed a controlled substance at discharge?: No
== END ==
LOC: PNWHC3 12:51
PROVIDERS: ATTEND Specialist
DX: M51.36 Other intervertebral disc degeneration, lumbar region (principal)
CPT/HCPCS: 99211